=== PATIENT | female | born 1940 | race Caucasian/White ===

== ENCOUNTER 2020-04-01 09:29 | Emergency (ER) | payer OTHER, MEDICAID ==
[~2020-04-01] VITALS: Ht 154.9 cm; Wt 97.2 kg
[~2020-04-01 09:29] MED LIST: ATEN25TA PO; ENAL20TA10 PO; FLUO20CA16 PO; INSU100V11 IJ; INSU100V13 SQ; NITR100C62 PO; PHEN100T82 PO; PRAV20TA2 PO
[2020-04-01 09:52] VITALS: BP 140/98
[2020-04-01] MEDS ORDERED: SULF1TAB24 PO (12:04)
[2020-04-01] MEDS ORDERED: CEPH-264 PO (12:04)
--- NOTE | 2020-04-01 12:05 | PHYS DOC ---
Past Medical History Past Medical History: Diabetes-Type I, GERD, High Cholesterol, Hypertension, VA, Other Additional Past Medical Histor: Diabetic Neuropathy Past Surgical History: Hysterectomy, Tonsillectomy Smoking Status: Former Smoker Alcohol Use: None Drug Use: None General Adult EDM: Chief Complaint: TOE PROBLEM HPI: HPI: Patient is a 79 year old female who presented to ER today for evaluation of right foot pain and swelling for several week. Patient denies any injury, denies any fever. Patient has history of diabetic. Patient says somehow she yet noticed that she missed the nail on the right 4th toe a few day ago. Patient denies any fever, no chest pain, no trouble breathing. Patient denies any pain in the right calf area. Review of Systems: Review of Systems: Constitutional: Denies fever or chills. [] Eyes: Denies change in visual acuity. [] HENT: Denies nasal congestion or sore throat. [] Respiratory: Denies cough or shortness of breath. [] Cardiovascular: Denies chest pain or edema. [] GI: Denies abdominal pain, nausea, vomiting, bloody stools or diarrhea. [] : Denies dysuria. [] Musculoskeletal: Denies back pain , positive for right foot pain and swelling. Integument: Denies rash. [] Neurologic: Denies headache, focal weakness or sensory changes. [] Endocrine: Denies polyuria or polydipsia. [] Lymphatic: Denies swollen glands. [] Psychiatric: Denies depression or anxiety. [] Heart Score: Risk Factors: Risk Factors: DM, Current or recent (<one month) smoker, HTN, HLP, family history of CAD, obesity. Risk Scores: Score 0 - 3: 2.5% MACE over next 6 weeks - Discharge Home Score 4 - 6: 20.3% MACE over next 6 weeks - Admit for Clinical Observation Score 7 - 10: 72.7% MACE over next 6 weeks - Early Invasive Strategies Allergies: Allergies: Allergies Coded Allergies Type Severity Reaction Last Updated Verified No Known Drug Allergies 08/28/13 No Physical Exam: PE: Constitutional: Well developed, well nourished, no acute distress, non-toxic appearance. [] HENT: Normocephalic, atraumatic, bilateral external ears normal, oropharynx moist, no oral exudates, nose normal. [] Eyes: PERRLA, EOMI, conjunctiva normal, no discharge. [] Neck: Normal range of motion, no tenderness, supple, no stridor. [] Cardiovascular:Heart rate regular rhythm, no murmur [] Lungs & Thorax: Bilateral breath sounds clear to auscultation [] Abdomen: Bowel sounds normal, soft, no tenderness, no masses, no pulsatile masses. [] Skin: Warm, dry, no erythema, no rash. [] Back: No tenderness, no CVA tenderness. [] Extremities:right foot is swollen and tender from the mid part to the lateral side, the right 4th toe with missing nail, with erythema, tender to palpation. There is strong dorsalis pedis pulse on right foot. No calf swelling or tender. Neurologic: Alert and oriented X 3, normal motor function, normal sensory function, no focal deficits noted. [] Psychologic: Affect normal, judgement normal, mood normal. [] Current Patient Data: Vital Signs: Vital Signs Date Time Temp Pulse Resp B/P (MAP) Pulse Ox O2 Delivery O2 Flow Rate FiO2 04/01/20 09:52 98.6 100 17 140/98 (112) 96 Room Air 98.6 EKG: EKG: [] Radiology/Procedures: Radiology/Procedures: [facility] [address] [place] [address] IMAGING REPORT Signed PATIENT: SAMANTA WOODY ACCOUNT: [id number] : 1940 LOCATION: ER AGE: 79 SEX: F EXAM STATUS: REG ER ORD. PHYSICIAN: JAVIER WELLER DO REASON: right foot swelling, 4th toe swollen, hx of DM PROCEDURE: FOOT RIGHT 3V FOOT RIGHT 3V History: Reason: right foot swelling, 4th toe swollen, hx of DM / Spl. Instructions: / History: Technique: 3 views right foot. Comparison: None. Findings: Normal alignment. No acute fracture. Mild midfoot degenerative changes. Plantar calcaneal spur. Vascular calcifications. Impression: 1. No acute osseous abnormality. Electronically signed by: Ronnell Robison DO (04/01/2020 12:24 PM) [id number] DICTATED and SIGNED BY: RONNELL ROBISON DO DATE: 04/01/20 1224 Course & Med Decision Making: Course & Med Decision Making Pertinent Labs and Imaging studies reviewed. (See chart for details) Patient is a 79-year-old female who was evaluated in the ER due to right foot pain, on examination the right foot is tender and swollen, there is a missing nail on the fourth toe area, patient had diabetic, x-ray did not show osteomyelitis. Patient will be treated for diabetic foot infection, she will be referred to wound care center at [place] for treatment as an outpatient. Yanci Disclaimer: Yanci Disclaimer: This electronic medical record was generated, in whole or in part, using a voice recognition dictation system. Departure Departure Impression: Primary Impression: Diabetic foot infection Disposition: HOME, SELF-CARE Condition: STABLE Referrals: NO PCP (PCP) LATONYA ISSA DO PLEASE CALL THIS WOUND CARE DOCTOR AT [place] FOR FOLLOW UP ON SATURDAY Patient Instructions: Cellulitis, Diabetes and Foot Care Additional Instructions: Thank you for visiting our Emergency Department. We appreciate you trusting us with your care. If any additional problems come up don't hesitate to return to visit us. Please follow up with your primary care provider so they can plan additional care if needed and know about the problem that you had. If symptoms worsen come back to the Emergency Department. Any concerning symptoms that start such as chest pain, shortness of air, weakness or numbness on one side of the body, running high fevers or any other concerning symptoms return to the ER. Scripts Cephalexin (KEFLEX) 500 Mg Capsule 1 CAP PO TID for 10 Days, #30 CAP 0 Refills Prov: JAVIER WELLER DO 04/01/20 Sulfamethoxazole/Trimethoprim (BACTRIM DS TABLET) 1 Each Tablet 1 TAB PO BID for 10 Days, #20 TAB 0 Refills Prov: JAVIER WELLER DO 04/01/20 Justicifation of Admission Dx: Justifications for Admission: Justification of Admission Dx: N/A JAVIER WELLER DO Apr 01, 2020 12:05
--- NOTE | 2020-04-01 12:27 | RAD ---
FOOT RIGHT 3V History: Reason: right foot swelling, 4th toe swollen, hx of DM / Spl. Instructions: / History: Technique: 3 views right foot. Comparison: None. Findings: Normal alignment. No acute fracture. Mild midfoot degenerative changes. Plantar calcaneal spur. Vascular calcifications. Impression: 1. No acute osseous abnormality. Electronically signed by: Ronnell Robison DO (04/01/2020 12:24 PM) [id number]
== END 2020-04-01 12:25 | disposition home or self-care (01) ==
LOC: ER 09:29
DX: L08.89 Other specified local infections of the skin and subcutaneous tissue (principal); E11.40 Type 2 diabetes mellitus with diabetic neuropathy, unspecified; M79.674 Pain in right toe(s); K21.9 Gastro-esophageal reflux disease without esophagitis; E78.00 Pure hypercholesterolemia, unspecified; I10 Essential (primary) hypertension; I25.2 Old myocardial infarction; Z87.891 Personal history of nicotine dependence; Z90.710 Acquired absence of both cervix and uterus
CPT/HCPCS: 73630; 99283

== ENCOUNTER 2021-03-17 08:50 | Emergency (ER) | payer OTHER, MEDICAID ==
[~2021-03-17] VITALS: Ht 154.9 cm; Wt 91.3 kg
[~2021-03-17 08:50] MED LIST changes: +APIX5TAB PO; +ATEN50TA PO; +CANA100T PO; +CEFD300C PO; +CEPH-264 PO; +CLOP75TA PO; +GABA300C18 PO; +INSU100V6 SQ; +INSU100V8 SQ; +INSU300I SQ; +LINA5TAB PO; +METO25TA4 PO; +OMEP-346 PO; +PRAV80TA2 PO; +SULF1TAB24 PO; +TRAM50TA PO
[2021-03-17 08:56] VITALS: BP 134/75
--- NOTE | 2021-03-17 10:13 | RAD ---
XR LUMBAR SPINE 2-3V History: Lower back pain, radiating to right leg. Comparison: None. Technique: AP, lateral and spot views of the lumbar spine. Findings: There is variant lumbosacral anatomy with 6 nonrib-bearing lumbar vertebral segments. There is no evidence of fracture. Mild dextroconvex curvature. Mild anterolisthesis of L5 on L6. No destructive osseous lesions are seen. Multilevel advanced facet hypertrophic degenerative changes greatest at L5-L6 and L6-S1. Severe disc space narrowing at T12-L1, Sacroiliac joints are unremarkable. Atherosclerotic calcifications aorta and iliac arteries. Calcification of the splenic artery. IMPRESSION: 1. Variant lumbosacral anatomy with 6 nonrib-bearing lumbar vertebral segments. 2. Multilevel lumbar spondylosis. No acute findings. Electronically signed by: Dario Ortega MD (03/17/2021 10:11 AM) [id number]
--- NOTE | 2021-03-17 10:22 | PHYS DOC ---
Past Medical History Past Medical History: Diabetes-Type II Additional Past Medical Histor: Diabetic Neuropathy,PVD Past Surgical History: Hysterectomy Additional Past Surgical Histo: RIGHT LEG STENT Smoking Status: Former Smoker Alcohol Use: None Drug Use: None General Adult EDM: Chief Complaint: LOWER BACK PAIN OR INJURY HPI: HPI: Patient is a 80 year old female who was brought here by EMS from assisted living facility due to low back pain that radiated to right buttock area for the last 2 days. Patient denies any injury. Patient denies any bowel or bladder incontinence. Patient denies any injury. Review of Systems: Review of Systems: Constitutional: Denies fever or chills. [] Eyes: Denies change in visual acuity. [] HENT: Denies nasal congestion or sore throat. [] Respiratory: Denies cough or shortness of breath. [] Cardiovascular: Denies chest pain or edema. [] GI: Denies abdominal pain, nausea, vomiting, bloody stools or diarrhea. [] : Denies dysuria. [] Musculoskeletal: Positive for low back pain, Integument: Denies rash. [] Neurologic: Denies headache, focal weakness or sensory changes. [] Endocrine: Denies polyuria or polydipsia. [] Lymphatic: Denies swollen glands. [] Psychiatric: Denies depression or anxiety. [] Heart Score: C/O Chest Pain: N/A Risk Factors: Risk Factors: DM, Current or recent (<one month) smoker, HTN, HLP, family history of CAD, obesity. Risk Scores: Score 0 - 3: 2.5% MACE over next 6 weeks - Discharge Home Score 4 - 6: 20.3% MACE over next 6 weeks - Admit for Clinical Observation Score 7 - 10: 72.7% MACE over next 6 weeks - Early Invasive Strategies Allergies: Allergies: Allergies Coded Allergies Type Severity Reaction Last Updated Verified No Known Drug Allergies 08/28/13 No Physical Exam: PE: Constitutional: Well developed, well nourished, no acute distress, non-toxic appearance. [] HENT: Normocephalic, atraumatic, bilateral external ears normal, oropharynx moist, no oral exudates, nose normal. [] Eyes: PERRLA, EOMI, conjunctiva normal, no discharge. [] Neck: Normal range of motion, no tenderness, supple, no stridor. [] Cardiovascular:Heart rate regular rhythm, no murmur [] Lungs & Thorax: Bilateral breath sounds clear to auscultation [] Abdomen: Bowel sounds normal, soft, no tenderness, no masses, no pulsatile zuri s. [] Skin: Warm, dry, no erythema, no rash. [] Back: Low back is tender to palpation at L4 and L5 area no CVA tenderness Extremities: No tenderness, no cyanosis, no clubbing, ROM intact, no edema. [] Neurologic: Alert and oriented X 3, normal motor function, normal sensory function, no focal deficits noted. [] Psychologic: Affect normal, judgement normal, mood normal. [] Current Patient Data: Vital Signs: Vital Signs Date Time Temp Pulse Resp B/P (MAP) Pulse Ox O2 Delivery O2 Flow Rate FiO2 03/17/21 08:56 97.7 99 20 134/75 (100) 93 Room Air 97.7 EKG: EKG: [] Radiology/Procedures: Radiology/Procedures: [facility] [address] [place] [address] IMAGING REPORT Signed PATIENT: SAMANTA WOODY ACCOUNT: [id number] : 1940 LOCATION: ER AGE: 80 SEX: F EXAM STATUS: REG ER ORD. PHYSICIAN: JAVIER WELLER DO REASON: lower back pain, radiating to right leg PROCEDURE: LUMBAR SPINE 2-3V XR LUMBAR SPINE 2-3V History: Lower back pain, radiating to right leg. Comparison: None. Technique: AP, lateral and spot views of the lumbar spine. Findings: There is variant lumbosacral anatomy with 6 nonrib-bearing lumbar vertebral segments. There is no evidence of fracture. Mild dextroconvex curvature. Mild anterolisthesis of L5 on L6. No destructive osseous lesions are seen. Multilevel advanced facet hypertrophic degenerative changes greatest at L5-L6 and L6-S1. Severe disc space narrowing at T12-L1, Sacroiliac joints are unremarkable. Atherosclerotic calcifications aorta and iliac arteries. Calcification of the splenic artery. IMPRESSION: 1. Variant lumbosacral anatomy with 6 nonrib-bearing lumbar vertebral segments. 2. Multilevel lumbar spondylosis. No acute findings. Electronically signed by: Dario Castillo MD (03/17/2021 10:11 AM) [id number] DICTATED and SIGNED BY: DARIO CASTILLO MD DATE: 03/17/21 [id number] 0 Course & Med Decision Making: Course & Med Decision Making Pertinent Labs and Imaging studies reviewed. (See chart for details) Patient is an 80-year-old female who present to ER due to low back pain that radiates to right buttock area, symptoms consistent with sciatica. Patient be discharged home with pain medication. No bowel or bladder incontinence. Dragon Disclaimer: Dragon Disclaimer: This electronic medical record was generated, in whole or in part, using a voice recognition dictation system. Departure Departure Impression: Primary Impression: Acute right-sided back pain with sciatica Disposition: HOME / SELF CARE / HOMELESS Condition: STABLE Referrals: BERNARDA VARGAS MD (PCP) Follow up with your doctor as needed on Saturday Patient Instructions: Sciatica Additional Instructions: Thank you for visiting our Emergency Department. We appreciate you trusting us with your care. If any additional problems come up don't hesitate to return to visit us. Please follow up with your primary care provider so they can plan additional care if needed and know about the problem that you had. If symptoms worsen come back to the Emergency Department. Any concerning symptoms that start such as chest pain, shortness of air, weakness or numbness on one side of the body, running high fevers or any other concerning symptoms return to the ER. Scripts Tramadol Hcl (TRAMADOL HCL) 50 Mg Tablet 50 MG PO Q6HRS PRN for PAIN, #20 TAB Prov: JAVIER WELLER DO 03/17/21 JAVIER WELLER DO Mar 17, 2021 10:22
[2021-03-17] MEDS ORDERED: TRAM50TA PO (10:47)
[2021-03-17] MEDS ORDERED: KETOROLAC 60 MG/2 ML VIAL. IM ONE (11:30)
== END 2021-03-17 11:56 | disposition home or self-care (01) ==
LOC: ER 08:50
DX: M54.41 Lumbago with sciatica, right side (principal); E11.40 Type 2 diabetes mellitus with diabetic neuropathy, unspecified; I73.9 Peripheral vascular disease, unspecified; Z90.710 Acquired absence of both cervix and uterus; Z87.891 Personal history of nicotine dependence
CPT/HCPCS: 72100; 96372; 99283; J1885

== ENCOUNTER 2021-10-05 19:47 | Inpatient (IN) | payer OTHER, MEDICAID ==
[~2021-10-05] VITALS: Ht 154.9 cm; Wt 81.4 kg
[~2021-10-05 19:47] MED LIST changes: +CIPR500T94 PO
[2021-10-05 20:19] LABS: BASO # 0.1 x10^3/uL (0.0-0.2); BASO % 1 % (0-3); EOS # 0.1 x10^3/uL (0.0-0.7); EOS % 1 % (0-3); HEMATOCRIT 27.4 % (36.0-47.0); HEMOGLOBIN 8.1 g/dL (12.0-15.5); LYMPH % 13 % (24-48); MEAN CORPUSCULAR HEMOGLOBIN 20 pg (25-35); MEAN CORPUSCULAR HGB CONC 29 g/dL (31-37); MEAN CORPUSCULAR VOLUME 70 fL (79-100); MONO % 14 % (0-9); NEUT # 5.1 x10^3/uL (1.8-7.7); NEUT % 71 % (31-73); PLATELET COUNT 528 x10^3/uL (140-400); RED BLOOD COUNT 3.94 x10^6/uL (3.50-5.40); RED CELL DISTRIBUTION WIDTH 20.3 % (11.5-14.5); WHITE BLOOD COUNT 7.2 x10^3/uL (4.0-11.0)
[2021-10-05 20:27] LABS: CALCIUM 8.5 mg/dL (8.5-10.1); CREATININE 0.9 mg/dL (0.6-1.0); GFR 59.9; POTASSIUM 3.3 mmol/L (3.5-5.1)
[2021-10-05 20:33] LABS: ALBUMIN 2.8 g/dL (3.4-5.0); ALBUMIN/GLOBULIN RATIO 0.8 (1.0-1.7); MAGNESIUM 2.2 mg/dL (1.8-2.4); TOTAL BILIRUBIN 0.3 mg/dL (0.2-1.0); TOTAL PROTEIN 6.5 g/dL (6.4-8.2)
[2021-10-05 20:37] LABS: BILIRUBIN,URINE NEGATIVE (NEG); CLARITY,URINE CLEAR; COLOR,URINE YELLOW; NITRITE,URINE NEGATIVE (NEG); PROTEIN,URINE NEGATIVE (NEG-TRACE)
[2021-10-05 20:38] LABS: BACTERIA,URINE 0 /HPF (0-FEW); HYALINE CASTS, URINE MODERATE /HPF; RBC,URINE >40 /HPF (0-2)
[2021-10-05] MEDS ORDERED: IV NORMAL SALINE 1000ML BAG 1,000 ML IV ONE (20:45)
--- NOTE | 2021-10-05 20:51 | RAD ---
PQRS Compliance Statement: One or more of the following individualized dose reduction techniques were utilized for this examinat ion: 1. Automated exposure control 2. Adjustment of the mA and/or kV according to patient size 3. Use of iterative reconstruction technique CT HEAD WITHOUT CONTRAST History: Reason: confusion, DIFFICULTY HOLDING STILL FOR CT / Spl. Instructions: / History: Comparison: None. Technique: Axial images are obtained of the head from the skull base through the vertex without IV co ntrast. Findings: No mass-effect, midline shift, extra-axial fluid collection, hemorrhage, or obvious acute infarction is identified. Basilar cisterns are patent. The ventricles and sulci are prominent, consistent with generalized cerebral atrophy. There is perive ntricular white matter hypoattenuation. This is a nonspecific finding but is commonly due to chronic small vessel ischemic disease. Bone windows demonstrate no acute calvarial abnormality. The visualized paranasal sinuses are clear. Mastoid air cells are well aerated. IMPRESSION: 1. No acute intracranial abnormality. 2. Generalized cerebral atrophy and periventricular white matter changes probably due to chronic sma ll vessel ischemic disease. Electronically signed by: Carlo Magallanes MD (10/05/2021 8:49 PM) [facility]
[2021-10-05] MEDS ORDERED: IV DEXTROSE 5% 500 ML IV ONE (20:59)
--- NOTE | 2021-10-05 20:59 | RAD ---
Exam: Chest one view INDICATION: Confusion TECHNIQUE: Frontal view of the chest Comparisons: 04/07/2020 FINDINGS: The cardiomediastinal silhouette and pulmonary vessels are within normal limits. Patchy bilateral airspace disease. No pleural effusion IMPRESSION: Findings likely related to pulmonary edema. Superimposed infectious process is difficult to exclude. Electronically signed by: Mary Kate Crain MD (10/05/2021 8:57 PM) BLAIRE
[2021-10-05] MEDS ORDERED: IV DEXTROSE 5%-LACT RINGERS 1,000 ML IV SCH (21:00)
[2021-10-05 21:32] LABS: ANISOCYTOSIS MOD; HYPOCHROMIA MARKED; MICROCYTOSIS MARKED; PLT ESTIMATE INCREASED (ADEQUATE); POLYCHROMASIA SLIGHT
--- NOTE | 2021-10-05 21:33 | ED.ADGEN ---
Past Medical History Past Medical History: Diabetes-Type II Additional Past Medical Histor: Diabetic Neuropathy, PVD Past Surgical History: Hysterectomy, Tonsillectomy Additional Past Surgical Histo: RIGHT LEG STENT Smoking Status: Never Smoker Alcohol Use: None Drug Use: None General Adult EDM: Chief Complaint: HYPOGLYCEMIA HPI: HPI: Patient is an 81-year-old female who presents to the emergency room with altered mental status. Per report, patient was found slid out of her chair with a pillow and blanket. She reportedly is on eliquis. She had a glucose of 38 upon EMS arrival and they gave her D10x2 with improvement in mental status. Patient is le thargic on exam and unable to provide any history. Review of Systems: Review of Systems: Complete ROS is negative unless otherwise documented in HPI Current Medications: Current Medications Medications (Trade) Dose Ordered Sig/Pool Start Time Stop Time Status Last Admin Dose Admin Dextrose 500 ml @ As Directed STK-MED ONCE 10/05/21 20:59 10/05/21 20:59 DC Dextrose/Lactated Ringer's 1,000 ml @ 100 mls/hr Q10H 10/05/21 21:00 10/05/21 21:00 100 MLS/HR Furosemide (Lasix) 40 mg 1X ONCE 10/05/21 22:00 10/05/21 22:01 DC 10/05/21 21:57 40 MG Sodium Chloride 1,000 ml @ 1,000 mls/hr 1X ONCE 10/05/21 20:45 10/05/21 21:44 DC 10/05/21 21:07 1,000 MLS/HR Allergies: Allergies: Allergies Coded Allergies Type Severity Reaction Last Updated Verified No Known Drug Allergies 08/28/13 No Physical Exam: PE: General: lethargic, opens eyes to voice HEENT: Atraumatic, EOMI, PERRL, airway patent, moist oral mucosa Neck: Supple, trachea midline Respiratory: normal effort, diffuse crackles, decreased breath sounds CV: RRR, no murmur, cap refill <2 GI: Soft, nondistended, nontender, no masses MSK: No obvious deformities Skin: Warm, dry, intact Neuro: moves all extremities, no focal deficits, GCS 11 Current Patient Data: Labs: Laboratory Tests Test 10/05/21 19:10 10/05/21 19:50 10/05/21 19:58 10/05/21 20:16 Urine Collection Type U cath Urine Color Yellow Urine Clarity Clear Urine pH 6.0 (<5.0-8.0) Urine Specific [place] 1.020 (1.000-1.030) Urine Protein Negative mg/dL (NEG-TRACE) Urine Glucose (UA) 500 mg/dL (NEG) Urine Ketones (Stick) Negative mg/dL (NEG) Urine Blood Large (NEG) Urine Nitrite Negative (NEG) Urine Bilirubin Negative (NEG) Urine Urobilinogen Dipstick 1.0 mg/dL (0.2 mg/dL) Urine Leukocyte Esterase Negative (NEG) Urine RBC >40 /HPF (0-2) Urine WBC 1-4 /HPF (0-4) Urine Squamous Epithelial Cells Mod /LPF Urine Bacteria 0 /HPF (0-FEW) Urine Hyaline Casts Moderate /HPF Urine Mucus Mod /LPF Glucose (Fingerstick) 159 mg/dL (70-99) H 111 mg/dL (70-99) H QT-Glk-E-Type Natriuretic Peptide 3847 pg/mL (0-449) H White Blood Count 7.2 x10^3/uL (4.0-11.0) Red Blood Count 3.94 x10^6/uL (3.50-5.40) Hemoglobin 8.1 g/dL (12.0-15.5) L Hematocrit 27.4 % (36.0-47.0) L Mean Corpuscular Volume 70 fL (79-100) L Mean Corpuscular Hemoglobin 20 pg (25-35) L Mean Corpuscular Hemoglobin Concent 29 g/dL (31-37) L Red Cell Distribution Width 20.3 % (11.5-14.5) H Platelet Count 528 x10^3/uL (140-400) H Neutrophils (%) (Auto) 71 % (31-73) Lymphocytes (%) (Auto) 13 % (24-48) L Monocytes (%) (Auto) 14 % (0-9) H Eosinophils (%) (Auto) 1 % (0-3) Basophils (%) (Auto) 1 % (0-3) Neutrophils # (Auto) 5.1 x10^3/uL (1.8-7.7) Lymphocytes # (Auto) 1.0 x10^3/uL (1.0-4.8) Monocytes # (Auto) 1.0 x10^3/uL (0.0-1.1) Eosinophils # (Auto) 0.1 x10^3/uL (0.0-0.7) Basophils # (Auto) 0.1 x10^3/uL (0.0-0.2) Platelet Estimate Increased (ADEQUATE) Polychromasia Slight Hypochromasia Marked Anisocytosis Mod Microcytosis Marked Sodium Level 139 mmol/L (136-145) Potassium Level 3.3 mmol/L (3.5-5.1) L Chloride Level 101 mmol/L (98-107) Carbon Dioxide Level 29 mmol/L (21-32) Anion Gap 9 (6-14) Blood Urea Nitrogen 20 mg/dL (7-20) Creatinine 0.9 mg/dL (0.6-1.0) Estimated GFR (Cockcroft-Gault) 59.9 BUN/Creatinine Ratio 22 (6-20) H Glucose Level 142 mg/dL (70-99) H Calcium Level 8.5 mg/dL (8.5-10.1) Magnesium Level 2.2 mg/dL (1.8-2.4) Total Bilirubin 0.3 mg/dL (0.2-1.0) Aspartate Amino Transferase (AST) 24 U/L (15-37) Alanine Aminotransferase (ALT) 16 U/L (14-59) Alkaline Phosphatase 110 U/L (46-116) Troponin I High Sensitivity 640 ng/L (4-50) H Total Protein 6.5 g/dL (6.4-8.2) Albumin 2.8 g/dL (3.4-5.0) L Albumin/Globulin Ratio 0.8 (1.0-1.7) L Test 10/05/21 20:53 10/05/21 21:29 10/05/21 22:14 Glucose (Fingerstick) 68 mg/dL (70-99) L 87 mg/dL (70-99) 82 mg/dL (70-99) Laboratory Tests 10/05/21 19:58 Laboratory Tests 10/05/21 19:58 Vital Signs: Vital Signs Date Time Temp Pulse Resp B/P (MAP) Pulse Ox O2 Delivery O2 Flow Rate FiO2 10/05/21 21:53 96.7 96.7 10/05/21 19:50 84 17 134/72 (92) 99 Nasal Cannula 2.0 EKG: EK Rate 94, irregular rhythm, mild ST depression in V5, V6, no ST elevation Heart Score: C/O Chest Pain: N/A Risk Factors: Risk Factors: DM, Current or recent (<one month) smoker, HTN, HLP, family history of CAD, obesity. Risk Scores: Score 0 - 3: 2.5% MACE over next 6 weeks - Discharge Home Score 4 - 6: 20.3% MACE over next 6 weeks - Admit for Clinical Observation Score 7 - 10: 72.7% MACE over next 6 weeks - Early Invasive Strategies Radiology/Procedures: Radiology/Procedures: [] Course & Med Decision Making: Course & Med Decision Making Pertinent Labs and Imaging studies reviewed. (See chart for details) Patient is a 81-year-old female with a history of diabetes who presents to the Emergency Room with altered mental status. On exam, patient is lethargic though does wake to voice and is moving all extremities. At this time it is unclear what is causing the patient's altered mental status, however they do not appear to be at their baseline. Differential includes infection, electrolyte imbalance, ACS, stroke, intracranial bleed, polypharmacy, dehydration, dementia, renal failure, intracranial bleed. Patient has mild hypothermia. No history was provided to suggest seizure with postictal state. Glucose is normal upon arrival but was low prior to arrival. At arrival, patient is protecting their airway and does not need to be intubated. There are not any signs of trauma, however it is possible that patient fell. To evaluate the patient's altered mental status, CBC, CMP, UA, troponin, EKG, CT head will be ordered. Patient is an elevated troponin. EKG is abnormal, however it does not show a STEMI at this time. She also has signs of pulmonary edema on chest x-ray. It is possible that her elevated troponin is due to congestive heart failure. Patient is requiring D5 at this time to keep glucose up as she has not been awake enough to eat. No further fluids will be given. Patient will be watched for any signs of respiratory distress. She is not hypoxic at this time and is not working to breathe. Patient will need to be admitted for further care and evaluation. CT head is negative. Dragon Disclaimer: Dragon Disclaimer: This electronic medical record was generated, in whole or in part, using a voice recognition dictation system. Departure Departure Impression: Primary Impression: Hypoglycemia Additional Impressions: Elevated troponin Pulmonary edema Disposition: ADMITTED INPATIENT Condition: CRITICAL Referrals: ABI GAYTAN MD (PCP) Problem Qualifiers OBEY CARO MD Oct 05, 2021 21:33
[2021-10-05] MEDS ORDERED: FUROSEMIDE 40 MG/4 ML VIAL. IVP ONE (22:00)
[2021-10-06] MEDS ORDERED: APIX2.5T PO (01:22)
[2021-10-06] MEDS ORDERED: FURO20TA3 PO (01:22)
[2021-10-06] MEDS ORDERED: INSU100I13 SQ ×2 (01:22→09:54)
[2021-10-06] MEDS ORDERED: PANT40TA77 PO (01:22)
[2021-10-06] MEDS ORDERED: FLUO20TA11 PO (01:22)
[2021-10-06] MEDS ORDERED: ACET325T21 PO (01:22)
[2021-10-06 02:19] VITALS: BP 121/90
--- NOTE | 2021-10-06 04:43 | EKG ---
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
[2021-10-06 07:00] VITALS: BP 109/59
[2021-10-06] MEDS ORDERED: ACETAMINOPHEN 325 MG TABLET. PO PRN (09:45)
[2021-10-06] MEDS ORDERED: IV DEXTROSE 5% 250 ML BAG. IV PRN (09:45)
[2021-10-06] MEDS ORDERED: DEXTROSE 50% 25 GM / 50ML DISP.SYRIN. IV PRN (09:45)
--- NOTE | 2021-10-06 09:50 | PDOC ---
Provider Note Date of Service: DATE: 10/06/21 TIME: 09:49 Provider Note Pt seen .H&P dictated.#[id number]. Justifications for Admission Other Justification BERNARDA VARGAS MD Oct 06, 2021 09:49
[2021-10-06] MEDS ORDERED: INSU100I17 SQ (09:54)
[2021-10-06] MEDS ORDERED: POTA-112 PO (09:54)
--- NOTE | 2021-10-06 09:55 | SNU/HH DC ---
DISCHARGE WITH HOME HEALTH DISCHARGE INFORMATION: Discharge Date: Oct 06, 2021 Final Diagnosis: Problems Medical Problems: (1) Elevated troponin Status: Acute (2) Hypoglycemia Status: Acute (3) Pulmonary edema Status: Acute Condition on Discharge: Stable CODE STATUS: Code Status: Full HOME HEALTH: Face to Face: I certify this patient is under my care and that I, or a nurse practitioner or physician's assistant department manager working with me, had a face to face encounter that meets the physician face to face encounter requirements with this patient on []. Medical Complications: DM RN For Eval/Treatment: Yes GROMMET WORKER For: Community Resources Pt Meets Homebound Status: Poor coordination w/ amb. POST DISCHARGE ORDERS: Activity Instructions for Disc: No restrictions Weight Bearing Status after Di: No restrictions DIET AFTER DISCHARGE: ADA Wound/Incision Care: No wound care needed CHECKS AFTER DISCHARGE: Checks after discharge: Check blood sugar, ac/hs TREATMENT/EQUIPMENT ORDERS: Adaptive Equipment Issued: None CERTIFICATION STATEMENT: Certification Statement: Certification Statement: Based on the above finding, I certify that this patient is confined to the home and needs intermittent fci care, physical therapy and/or speech therapy, or continues to need occupational therapy.~ This patient is under my care, and I have initiated the establishment of the plan of care.~ This patient will be followed by myself or a community physician who will periodically review the plan of care. Home Meds Active Scripts Potassium Chloride (Klor-Con 10) 10 Meq Tablet.er, 1 TAB PO DAILY for pot for 30 Days, #30 TAB 0 Refills Prov:BERNARDA VARGAS MD 10/06/21 Insulin Aspart (NOVOLOG FLEXPEN) 100 Unit/1 Ml Insuln.pen, 8 UNIT SQ TID for dm for 30 Days, SYR Prov:BERNARDA VARGAS MD 10/06/21 Insulin Glargine,Hum.rec.anlog (LANTUS SOLOSTAR) 100 Unit/1 Ml Insuln.pen, 20 UNIT SQ QHS for dm, #15 ML 5 Refills Prov:BERNARDA VARGAS MD 10/06/21 Reported Medications Acetaminophen (ACETAMINOPHEN) 325 Mg Tablet, 2 TAB PO PRN Q4HRS PRN for 10/06/21 Pantoprazole Sodium (PROTONIX ) 40 Mg Tablet.dr, 40 MG PO DAILYAC for GERD, TAB 10/06/21 Furosemide (FUROSEMIDE) 20 Mg Tablet, 20 MG PO DAILY for , TAB 10/06/21 Apixaban (ELIQUIS) 2.5 Mg Tablet, 1 TAB PO BID for 10/06/21 Fluoxetine Hcl (FLUOXETINE HCL) 20 Mg Tablet, 30 MG PO DAILY for , TAB 10/06/21 Linagliptin (TRADJENTA) 5 Mg Tablet, 5 MG PO DAILY for TYPE 2 DIABETES, TAB 04/07/20 Pravastatin Sodium (PRAVASTATIN SODIUM) 80 Mg Tablet, 1 TAB PO DAILY for HLD, #30 TAB 5 Refills 04/07/20 Gabapentin (GABAPENTIN ) 300 Mg Capsule, 300 MG PO TID for NEUROGENIC PAIN, CAP 04/07/20 Discontinued Reported Medications Insulin Glargine,Hum.rec.anlog (LANTUS SOLOSTAR) 100 Unit/1 Ml Insuln.pen, 42 UNIT SQ QHS for , #15 ML 3 Refills 10/06/21 BERNARDA VARGAS MD Oct 06, 2021 09:55
[2021-10-06] MEDS ORDERED: LINAGLIPTIN 5 MG TABLET PO SCH (10:30)
[2021-10-06] MEDS ORDERED: POTASSIUM CHLORIDE 20 MEQ TABLET.ER. PO ONE (10:30)
[2021-10-06] MEDS ORDERED: FLUoxetine HCL 10 MG CAPSULE PO SCH (10:30)
[2021-10-06] MEDS ORDERED: FUROSEMIDE 20 MG TABLET PO SCH (10:30)
[2021-10-06] MEDS ORDERED: PANTOPRAZOLE 40 MG TABLET.DR. PO SCH (10:30)
[2021-10-06] MEDS ORDERED: APIXABAN 2.5 MG TABLET. PO SCH (10:30)
--- NOTE | 2021-10-06 10:35 | NUR ---
SS following for discharge planning. SS reviewed pt chart and discussed with pt RN. Pt is resident from [facility], ; fax [phone]. Pt is currently requiring oxygen at two liters nasal canula. Pt has home oxygen. Discharge orders received for home with home healthcare. Pt had services with [facility], ; fax [phone]. Discharge orders and clinical phoned and faxed to [facility] and [facility]. Pt will discharge today and return to facility at 1130 via [facility] transport, [id number]. Pt and pt's RN notified.
--- NOTE | 2021-10-06 10:48 | HP ---
DATE OF SERVICE: 10/06/2021 ADMIT DATE: 10/05/2021 REASON FOR ADMISSION TO THE HOSPITAL: Hypoglycemia, altered mental status. HISTORY OF PRESENT ILLNESS: The patient is an 81-year-old female with history of diabetes, insulin-dependent, has been having blood sugars fluctuating from 40-400 and she had a low blood sugar yesterday. She was slid out of the chair. When the EMS came, blood sugar was 38, was given D50 and the patient was brought to the hospital. She has [facility] last one month 2 times for anemia, congestive heart failure, AFib and had extensive workup done. The patient is on Eliquis for AFib. Hemoglobin is 8, has been stable. PAST MEDICAL HISTORY: Diabetes, hypertension, anxiety, depression, peripheral vascular disease, AFib. PAST SURGICAL HISTORY: Had a stent in the leg, hysterectomy, tonsillectomy. PERSONAL HISTORY: Denies smoking, alcohol, drug abuse. REVIEW OF SYSTEMS: Denies any chest pain, shortness of breath. She adamantly wants to go back to her [place], [place]. ALLERGIES: No known allergies. MEDICATIONS: The patient is on insulin Lantus 42 units daily, Eliquis 2.5 mg twice a day, fluoxetine 20 mg daily, Lasix 20 mg daily, gabapentin 300 mg 3 times a day, Tradjenta 5 mg daily, pantoprazole 40 mg daily, pravastatin 80 mg daily. REVIEW OF SYMPTOMS: Denies any chest pain, shortness of breath. She wants to go back. PHYSICAL EXAMINATION: GENERAL: Elderly female, not in any distress, sitting in chair. VITAL SIGNS: Temperature 99, pulse 106, respirations 18, blood pressure 109/50, 93% on 2 liters. HEENT: Head is atraumatic. Pupils equal. Oral cavity, dentures. NECK: Supple. Thyroid not enlarged. JVD not elevated. CHEST: Symmetrical. CARDIOVASCULAR: S1, S2, regular. LUNGS: Few crackles at the base. ABDOMEN: Soft. No mass palpable. EXTERNAL GENITALIA: No Bates. RECTUM: Deferred. EXTREMITIES: No calf tenderness, no edema. The patient is complaining of small superficial cut from fall. NEUROLOGIC: No focal deficits. Moving all extremities. LABORATORY DATA: Laboratory data shows a white count of 7, hemoglobin 8, platelets 528. Electrolytes show a sodium 139, potassium 3.3, chloride 101, bicarbonate 29, BUN 20, creatinine 0.9, glucose 39 when the paramedics came, now is 142. LFTs normal. Troponin 640. BNP 3000 and urine negative for infection, 40 RBCs, WBCs 1-[address] head negative for abnormality. Chest x-ray shows CHF. FINAL IMPRESSION: 1. Hypoglycemia. 2. Chronic AFib, on Eliquis. 3. Chronic systolic heart failure, on medications, had extensive workup done. 4. Insulin-dependent brittle diabetes. 5. Hypertension. 6. Hyperlipidemia. 7. Anemia of chronic disease,refused work up. PLAN: At this time, the patient is admitted to the hospital. The patient is adamant on going back home. We will cut down the Lantus to half the dose and also give mealtime insulin and see how she improves. Also Cardiology was consulted. As mentioned, had extensive workup done at [facility] in last one month. CRISTHIAN/NAOMI/VICKEY DR: CRISTHIAN/chad TID: [id number] RYAN
--- NOTE | 2021-10-06 11:28 | NUR ---
DISCHARGE TELE DISCONTINUED, PIV ACCIDENTALLY REMOVED BY PT EARLY THIS SHIFT. DISCHARGE PAPERS SENT IN PACKET WITH PATIENT FOR [facility] AND [facility] HAS BEEN FAXED ORDERS WELL. PT DRESSED IN STREET CLOTHES, NOTABLY THERE ARE SEVERAL SMALL SKIN TEARS ON (B)FA FROM PT PICKING TAPE ET IV OUT EARLIER THIS AM. SHE WILL NOT ALLOW DRESSINGS TO THESE AREAS. TRANSFERS WITH [facility] TO W/C FOR TRANSPORT BACK TO FACILITY.
[2021-10-06] MEDS ORDERED: INSULIN LISPRO 300 UNITS/3 ML VIAL. SQ SCH (12:00)
[2021-10-06] MEDS ORDERED: GABAPENTIN 300 MG CAPSULE. PO SCH (14:00)
[2021-10-06] MEDS ORDERED: ATORVASTATIN CALCIUM 20 MG TABLET PO SCH (21:00)
--- NOTE | 2021-10-07 10:51 | PDOC ---
Provider Note Date of Service: DATE: 10/07/21 TIME: 10:50 Provider Note Discharge summary dictated.#[id number]. Justifications for Admission Other Justification BERNARDA VARGAS MD Oct 07, 2021 10:51
--- NOTE | 2021-10-07 11:58 | DS ---
DATE OF DISCHARGE: 10/06/2021 REASON FOR ADMISSION TO THE HOSPITAL: Hypoglycemia insulin-dependent diabetes. CONSULTATIONS: None. PROCEDURES: None. HOSPITAL COURSE: The patient is an 81-year-old female with history of diabetes, on insulin. Lives in assisted facility. She was slumped onto the chair with paramedics came, her blood sugar was 38, was given D50, was admitted to the hospital. CT head was negative. The patient's insulin was on hold. Blood sugars improved and she has chronic conditions including AFib, congestive heart failure, diabetes, hypertension, hyperlipidemia and she had extensive workup at [facility] in last 2 months. The patient's blood sugar remained above 100 and she was discharged. She was cut down from Lantus to half the dose and short-acting insulin with each meal. We will send home with home health. Monitor blood sugars. THEODORA DR: Tam TID: [id number]
== END 2021-10-06 11:25 | disposition home health service (06) | DRG 638 ==
LOC: ER 19:47 → ED HOLD 22:00 → 6 SOUTH 23:59
PROVIDERS: ADMIT Internal Medicine; ATTEND Internal Medicine
DX: E11.649 Type 2 diabetes mellitus with hypoglycemia without coma (principal); J81.1 Chronic pulmonary edema; I50.22 Chronic systolic (congestive) heart failure; I48.20 Chronic atrial fibrillation, unspecified; E11.40 Type 2 diabetes mellitus with diabetic neuropathy, unspecified; E11.51 Type 2 diabetes mellitus with diabetic peripheral angiopathy without gangrene; Z79.01 Long term (current) use of anticoagulants; Z79.4 Long term (current) use of insulin; Z90.710 Acquired absence of both cervix and uterus; F32.A Depression, unspecified; F41.9 Anxiety disorder, unspecified; E78.5 Hyperlipidemia, unspecified; I11.0 Hypertensive heart disease with heart failure; I50.9 Heart failure, unspecified; D63.8 Anemia in other chronic diseases classified elsewhere
CPT/HCPCS: 36415; 70450; 71045; 80053; 81001; 82962; 83735; 83880; 84484; 85025; 93005; 96365; 96375; J1815; J1940; J7030; J7121; 99285-25; G0378

== ENCOUNTER 2021-10-09 14:16 | Inpatient (IN) | payer OTHER, MEDICAID ==
[~2021-10-09] VITALS: Ht 149.9 cm; Wt 84.1 kg
[~2021-10-09 14:16] MED LIST changes: +ACET325T21 PO; +APIX2.5T PO; +FLUO20TA11 PO; +FURO20TA3 PO; +INSU100I13 SQ; +INSU100I17 SQ; +PANT40TA77 PO; +POTA-112 PO
--- NOTE | 2021-10-09 15:25 | PHYS DOC ---
Past Medical History Past Medical History: Dementia, Diabetes-Type II, High Cholesterol, Hyper tension Additional Past Medical Histor: Diabetic Neuropathy, PVD Past Surgical History: Hysterectomy, Tonsillectomy Additional Past Surgical Histo: RIGHT LEG STENT Smoking Status: Never Smoker Alcohol Use: None Drug Use: None General Adult EDM: Chief Complaint: BLURRED/DOUBLE VISION HPI: HPI: Patient is a 81 year old female with a history of diabetes type 2, hypertension, high cholesterol, dementia, PVD, presented to the ED today to be evaluated for generalized weakness and blurry vision, symptoms began 5 days ago. Son states patient was seen in the ED 3 days ago after having hypoglycemia with a syncope episode. Son also state patient is having visual hallucinations. She is seeing things that do not exist. Patient states she needs to go home and take care of her baby. Son states patient's kids are all grown up and there is no baby at home. Patient denies any chest pain, shortness of breath, fever, headache, cough or congestion Review of Systems: Review of Systems: Constitutional: Reports generalized weakness. Denies fever or chills. [] Eyes: Denies change in visual acuity. [] HENT: Denies nasal congestion or sore throat. [] Respiratory: Denies cough or shortness of breath. [] Cardiovascular: Denies chest pain or edema. [] GI: Denies abdominal pain, nausea, vomiting, bloody stools or diarrhea. [] : Denies dysuria. [] Musculoskeletal: Denies back pain or joint pain. [] Integument: Denies rash. [] Neurologic: Reports blurry vision. Denies headache, focal weakness or sensory changes. [] Psychiatric: Denies depression or anxiety. [] Heart Score: C/O Chest Pain: N/A Risk Factors: Risk Factors: DM, Current or recent (<one month) smoker, HTN, HLP, family history of CAD, obesity. Risk Scores: Score 0 - 3: 2.5% MACE over next 6 weeks - Discharge Home Score 4 - 6: 20.3% MACE over next 6 weeks - Admit for Clinical Observation Score 7 - 10: 72.7% MACE over next 6 weeks - Early Invasive Strategies Allergies: Allergies: Allergies Coded Allergies Type Severity Reaction Last Updated Verified No Known Drug Allergies 08/28/13 No Physical Exam: PE: Constitutional: Well developed, well nourished, no acute distress, non-toxic appearance. [] HENT: Normocephalic, atraumatic, bilateral external ears normal, oropharynx moist, no oral exudates, nose normal. [] Eyes: PERRLA, EOMI, conjunctiva normal, no discharge. [] Neck: Normal range of motion, no tenderness, supple, no stridor. [] Cardiovascular:Heart rate regular rhythm Lungs & Thorax: Bilateral breath sounds clear to auscultation [] Abdomen: Bowel sounds normal, soft, no tenderness, no masses, no pulsatile masses. [] Skin: Warm, dry, no erythema, no rash. [] Back: No tenderness, no CVA tenderness. [] Extremities: No tenderness, no cyanosis, no clubbing, ROM intact, no edema. [] Neurologic: Alert and oriented X 3, normal motor function, normal sensory function, no focal deficits noted. Cranial nerves II through XII intact Psychologic: Affect normal, judgement normal, mood normal. [] EKG: EK interpreted by Dr. Santiago sinus rhythm heart rate 99 no STEMI [] Radiology/Procedures: Radiology/Procedures: []PROCEDURE: CT HEAD WO CONTRAST EXAMINATION: CT HEAD/BRAIN WO CLINICAL HISTORY: Weakness for 5 days. TECHNIQUE: Serial axial images without IV contrast were obtained from the vertex to the foramen magnum. CT Dose Reduction Employed: One or more of the following individualized dose reduction techniques were utilized for this examination: 1. Automated exposure control 2. Adjustment of the mA and/or kV according to patient size 3. Use of iterative reconstruction technique. COMPARISON: 10/05/2021 FINDINGS: Acute Change: No evidence of an acute infarct or other acute parenchymal process. Hemorrhage: No evidence of acute intracranial hemorrhage. Mass Lesion/Mass Effect: No evidence of intracranial mass or extraaxial fluid collection. No significant mass effect. Chronic Change: Scattered patchy foci of hypoattenuation in the supratentorial white matter, nonspecific but likely represents mild microvascular ischemia. Atherosclerotic calcification of the intracranial portion of the bilateral internal carotid arteries. Parenchyma: Mild generalized volume loss. Ventricles: Ventricular enlargement concordant with degree of parenchymal volume loss. Paranasal Sinuses and Skull Base: Visualized paranasal sinuses clear. Visualized skull base and soft tissues unremarkable. IMPRESSION: No evidence of acute intracranial abnormality or significant interval change. Electronically signed by: Jose Angela DO (10/09/2021 3:37 PM) [facility] DICTATED and SIGNED BY: JOSE ANGELA DO DATE: 10/09/214 PROCEDURE: PORTABLE CHEST 1V XR CHEST 1V 10/09/2021 3:28 PM INDICATION: Weakness COMPARISON: 10/05/2021 TECHNIQUE: Portable frontal view of the chest is provided. FINDINGS: The cardiomediastinal silhouette is similar in appearance. Coarse peripheral reticular interstitial changes are present with improved aeration as compared to prior examination. There are no significant pleural effusions. There is no pulmonary vascular congestion. No pneumothorax. No suspicious osseous abnormality. IMPRESSION: Peripheral coarse reticular interstitial opacities appear marginally improved as compared to prior examination with improved aeration the lung bases. Findings could reflect improving multifocal pneumonitis with residual scarring or subsegmental atelectasis. Electronically signed by: Andrade Marin MD (10/09/2021 3:31 PM) [id number] DICTATED and SIGNED BY: ANDRADE MARIN MD DATE: 10/09/211529 Course & Med Decision Making: Course & Med Decision Making Pertinent Labs and Imaging studies reviewed. (See chart for details) This 81-year-old female patient presented to the ED today with bilateral vision and generalized weakness, symptoms for 5 days. Patient is also having visual hallucinations. PAT team will be consulted for this. Vitals on arrival to the ED temperature 98.3, heart rate 104, respiration 19, blood pressure 130/57, O2 sats 97% EKG is negative, CT of the head are negative for any acute findings. CBC with a normal WBC, hemoglobin 7.8 with hematocrit of 26.7, history of anem ia, this is around her baseline. CMP with nothing really acute, BNP 4630, furosemide ordered, troponin 89, patient has no chest pain, this is actually lower than her previous troponin levels. UA still pending. Spoke with -he requested we have PAT evaluate patient and transfer her to [facility]. Vivien from PAT evaluated patient, she states patient cannot go to psych until she has a negative PCR COVID test. Patient at some point got herself out of the bed and started to walk leaving the ED stating she is going home. She became agitated. We had to convince her to go back in the room, she continued to be agitated. She was given Ativan 1 mg and she calmed down. Prior to going to the floor, patient was in the bathroom voiding by herself, is my understanding she was found lying on the floor awake alert oriented. She states she was getting her pants up after urinating, she states she slipped and fell. The floor was wet with her urine. Patient denies passing out, denies any neck pain, head pain, mid or low back pain. Ambulates with no difficulties. Dragon Disclaimer: [employer] Disclaimer: This electronic medical record was generated, in whole or in part, using a voice recognition dictation system. Departure Departure Impression: Primary Impression: Generalized weakness Additional Impressions: Visual hallucinations CHF exacerbation Qualified Codes: I50.9 - Heart failure, unspecified Anemia Qualified Codes: D64.9 - Anemia, unspecified Disposition: ADMITTED INPATIENT Condition: STABLE Referrals: ABI GAYTAN MD (PCP) AUNDREA DEGROOT APRN Oct 09, 2021 15:25
[2021-10-09 15:33] LABS: BASO # 0.1 x10^3/uL (0.0-0.2); BASO % 1 % (0-3); EOS # 0.1 x10^3/uL (0.0-0.7); EOS % 1 % (0-3); HEMATOCRIT 26.7 % (36.0-47.0); HEMOGLOBIN 7.8 g/dL (12.0-15.5); LYMPH # 1.6 x10^3/uL (1.0-4.8); LYMPH % 19 % (24-48); MEAN CORPUSCULAR HEMOGLOBIN 20 pg (25-35); MEAN CORPUSCULAR HGB CONC 29 g/dL (31-37); MEAN CORPUSCULAR VOLUME 70 fL (79-100); MONO # 0.8 x10^3/uL (0.0-1.1); MONO % 9 % (0-9); NEUT # 5.7 x10^3/uL (1.8-7.7); NEUT % 70 % (31-73); PLATELET COUNT 446 x10^3/uL (140-400); RED BLOOD COUNT 3.83 x10^6/uL (3.50-5.40); RED CELL DISTRIBUTION WIDTH 20.5 % (11.5-14.5); WHITE BLOOD COUNT 8.2 x10^3/uL (4.0-11.0)
--- NOTE | 2021-10-09 15:33 | RAD ---
XR CHEST 1V 10/09/2021 3:28 PM INDICATION: Weakness COMPARISON: 10/05/2021 TECHNIQUE: Portable frontal view of the chest is provided. FINDINGS: The cardiomediastinal silhouette is similar in appearance. Coarse peripheral reticular interstitial c hanges are present with improved aeration as compared to prior examination. There are no significant pleural effusions. There is no pulmonary vascular congestion. No pneumothora x. No suspicious osseous abnormality. IMPRESSION: Peripheral coarse reticular interstitial opacities appear marginally improved as compared to prior ex amination with improved aeration the lung bases. Findings could reflect improving multifocal pneumoni tis with residual scarring or subsegmental atelectasis. Electronically signed by: Maureen Varela MD (10/09/2021 3:31 PM) [id number]
--- NOTE | 2021-10-09 15:39 | RAD ---
EXAMINATION: CT HEAD/BRAIN WO CLINICAL HISTORY: Weakness for 5 days. TECHNIQUE: Serial axial images without IV contrast were obtained from the vertex to the foramen magnu m. CT Dose Reduction Employed: One or more of the following individualized dose reduction techniques carey e utilized for this examination: 1. Automated exposure control 2. Adjustment of the mA and/or kV ac cording to patient size 3. Use of iterative reconstruction technique. COMPARISON: 10/05/2021 FINDINGS: Acute Change: No evidence of an acute infarct or other acute parenchymal process. Hemorrhage: No evidence of acute intracranial hemorrhage. Mass Lesion/Mass Effect: No evidence of intracranial mass or extraaxial fluid collection. No signific ant mass effect. Chronic Change: Scattered patchy foci of hypoattenuation in the supratentorial white matter, nonspeci fic but likely represents mild microvascular ischemia. Atherosclerotic calcification of the intracran ial portion of the bilateral internal carotid arteries. Parenchyma: Mild generalized volume loss. Ventricles: Ventricular enlargement concordant with degree of parenchymal volume loss. Paranasal Sinuses and Skull Base: Visualized paranasal sinuses clear. Visualized skull base and soft tissues unremarkable. IMPRESSION: No evidence of acute intracranial abnormality or significant interval change. Electronically signed by: Jose Castillo DO (10/09/2021 3:37 PM) [facility]
[2021-10-09 15:51] LABS: PROTHROMBIN TIME PATIENT 16.5 SEC (11.7-14.0)
[2021-10-09 15:57] LABS: CALCIUM 9.2 mg/dL (8.5-10.1); CREATININE 1.1 mg/dL (0.6-1.0); GFR 47.6; POTASSIUM 3.5 mmol/L (3.5-5.1)
[2021-10-09 16:09] LABS: ALBUMIN/GLOBULIN RATIO 0.7 (1.0-1.7); MAGNESIUM 1.8 mg/dL (1.8-2.4); TOTAL BILIRUBIN 0.7 mg/dL (0.2-1.0); TOTAL PROTEIN 7.2 g/dL (6.4-8.2)
[2021-10-09] MEDS ORDERED: FUROSEMIDE 40 MG/4 ML VIAL. IVP ONE (17:45)
[2021-10-09] MEDS ORDERED: MORPHINE SULFATE 2 MG/ML INJ. IVP PRN (18:45)
[2021-10-09] MEDS ORDERED: ONDANSETRON PF 4 MG/2 ML VIAL. IVP PRN (18:45)
[2021-10-09] MEDS ORDERED: ACETAMINOPHEN 325 MG TABLET. PO PRN (18:45)
[2021-10-09 19:31] LABS: ANISOCYTOSIS MOD; HYPOCHROMIA MARKED; MICROCYTOSIS MARKED; PLT ESTIMATE INCREASED (ADEQUATE); POLYCHROMASIA SLIGHT
[2021-10-09 21:50] VITALS: BP 111/60
--- NOTE | 2021-10-09 22:00 | NUR ---
Pt arrived to unit via wheelchair. Refused to participate in admission assessment. Pt had wet pants on and refused to change into dry ones. She repeatedly stated that she would not be staying at the hospital and needed to get home to her 7 year old child. Pt assisted onto bed and laid down closing her eyes. Pt was educate don the use of call light prior to getting out of bed. She stated she did not like our rules. Pt alarm applied at this time. Admission completed to best of ability with information from the emergency department.
[2021-10-09 23:00] VITALS: BP 84/41
[2021-10-10 03:00] VITALS: BP 100/59
[2021-10-10 06:03] LABS: BASO # 0.1 x10^3/uL (0.0-0.2); BASO % 1 % (0-3); EOS # 0.2 x10^3/uL (0.0-0.7); EOS % 2 % (0-3); HEMATOCRIT 26.2 % (36.0-47.0); HEMOGLOBIN 7.6 g/dL (12.0-15.5); LYMPH # 1.9 x10^3/uL (1.0-4.8); LYMPH % 20 % (24-48); MEAN CORPUSCULAR HEMOGLOBIN 20 pg (25-35); MEAN CORPUSCULAR HGB CONC 29 g/dL (31-37); MEAN CORPUSCULAR VOLUME 69 fL (79-100); MONO # 0.9 x10^3/uL (0.0-1.1); MONO % 9 % (0-9); NEUT # 6.2 x10^3/uL (1.8-7.7); NEUT % 68 % (31-73); PLATELET COUNT 411 x10^3/uL (140-400); RED BLOOD COUNT 3.77 x10^6/uL (3.50-5.40); RED CELL DISTRIBUTION WIDTH 20.1 % (11.5-14.5); WHITE BLOOD COUNT 9.2 x10^3/uL (4.0-11.0)
[2021-10-10 06:12] LABS: ALBUMIN 2.6 g/dL (3.4-5.0); ALBUMIN/GLOBULIN RATIO 0.7 (1.0-1.7); CALCIUM 8.5 mg/dL (8.5-10.1); GFR 53.1; TOTAL BILIRUBIN 0.6 mg/dL (0.2-1.0); TOTAL PROTEIN 6.1 g/dL (6.4-8.2)
[2021-10-10 07:00] VITALS: BP 101/53
[2021-10-10] MEDS ORDERED: DEXTROSE 50% 25 GM / 50ML DISP.SYRIN. IV PRN (08:30)
[2021-10-10] MEDS ORDERED: POTASSIUM CHLORIDE 20 MEQ TABLET.ER. PO ONE (08:30)
[2021-10-10] MEDS ORDERED: IV DEXTROSE 5% 250 ML BAG. IV PRN (08:30)
[2021-10-10] MEDS ORDERED: ACETAMINOPHEN 325 MG TABLET. PO PRN (08:30)
[2021-10-10] MEDS: PANTOPRAZOLE 40 MG TABLET.DR. PO SCH (08:52)
[2021-10-10] MEDS: POTASSIUM CHLORIDE 20 MEQ TABLET.ER. PO SCH ×2 (08:52→10:07)
--- NOTE | 2021-10-10 08:52 | NUR ---
1x dose of potassium PO nonadministered by this RN. ICU protocol already in place. Refer to EMAR for additional details.
[2021-10-10] MEDS ORDERED: IRON SUCROSE COMPLEX 200 MG in IV NORMAL SALINE 100ML 100 ML IV ONE (09:00)
--- NOTE | 2021-10-10 09:48 | PDOC ---
Provider Note Date of Service: DATE: 10/10/21 TIME: 09:47 Provider Note Pt seen H&P dictated.#[id number]. Justifications for Admission Other Justification BERNARDA VARGAS MD Oct 10, 2021 09:48
[2021-10-10] MEDS: POTASSIUM CHLORIDE 10 MEQ TABLET.ER. PO SCH (10:06)
[2021-10-10] MEDS: FLUoxetine HCL 10 MG CAPSULE PO SCH (10:06)
[2021-10-10] MEDS: FUROSEMIDE 20 MG TABLET PO SCH (10:07)
[2021-10-10] MEDS: APIXABAN 2.5 MG TABLET. PO SCH ×2 (10:07→20:34)
[2021-10-10] MEDS: GABAPENTIN 300 MG CAPSULE. PO SCH ×3 (10:07→20:34)
[2021-10-10] MEDS: LINAGLIPTIN 5 MG TABLET PO SCH (10:07)
--- NOTE | 2021-10-10 10:25 | HP ---
DATE OF SERVICE: 10/10/2021 ADMIT DATE: 10/09/2021 MEDICAL HISTORY AND PHYSICAL PATIENT LOCATION: 109. REASON FOR ADMISSION TO THE HOSPITAL: Visual hallucinations and patient's family is concerned that she is having dementia with hallucinations once transferred to the psych facility. HISTORY OF PRESENT ILLNESS: The patient is an 81-year-old female. She has diabetes. She was here a week ago with hypoglycemia. This was corrected and the patient's son states that she is confused at times and sees things that does not exist. The patient stated that she needs to go home, take care of her babies. There is no little ones at home. She lives in assisted care facility. The patient denied saying that today. PAST MEDICAL HISTORY: Diabetes, hypertension, hyperlipidemia, CHF, AFib, dementia. PAST SURGICAL HISTORY: Hysterectomy, tonsillectomy, stent in the right leg. The patient had a complete evaluation at [facility] for CHF, AFib. Patient is on Eliquis. She also had anemia, requiring transfusion. PERSONAL HISTORY: Denies smoking, alcohol, drug abuse. ALLERGIES: No known allergies. MEDICATIONS: The patient is on Tylenol, Eliquis 2.5 twice a day, fluoxetine 30 mg daily, Lasix 20 mg daily, gabapentin 300 mg 3 times daily, insulin 8 units 3 times daily, Lantus 20 units at bedtime, Tradjenta 5 mg daily, pantoprazole 40 mg daily, potassium 10 mEq daily, pravastatin 80 mg daily. REVIEW OF SYMPTOMS: The patient denies any chest pain, shortness of breath. Denies any hallucinations. Denies saying anything about baby's. Rest of her systems are negative. PHYSICAL EXAMINATION: GENERAL: The patient is not in any distress. VITAL SIGNS: Temperature 98, pulse 106, respirations 18, blood pressure 101/53, 94 on room air. HEENT: Head is atraumatic. Pupils equal. Oral cavity, no teeth. NECK: Supple. CHEST: Symmetrical. CARDIOVASCULAR: S1, S2. LUNGS: Few crackles at the bases. ABDOMEN: Soft. No mass palpable. EXTERNAL GENITALIA: No Bates. RECTUM: Deferred. EXTREMITIES: 1-2+ edema of lower extremities from CHF. NEUROLOGIC: The patient knows she is in the hospital, remembers me. Moving all extremities. No focal deficits noted. LABORATORY DATA: Shows a white count 8, hemoglobin 7.8, platelets 446. INR 1.4. Electrolytes show sodium 135, potassium 3.5, chloride 99, bicarb 26, BUN 25, creatinine 1.1, glucose 121 and LFTs normal. BNP 4630. COVID screen negative. Chest x-ray, chronic infiltrates. CT head, no acute abnormality. FINAL IMPRESSION: 1. Hallucinations. 2. Dementia. 3. Chronic systolic heart failure. 4. Chronic atrial fibrillation. 5. Anemia of chronic disease. 6. Brittle diabetes. DISPOSITION: She was admitted to the hospital, seen by PAT team and waiting for COVID test, probably we can go for inpatient geriatric care for evaluation. THEODORA DR: Tam TID: [id number]
--- NOTE | 2021-10-10 10:52 | EKG ---
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
--- NOTE | 2021-10-10 10:52 | EKG ---
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
[2021-10-10 11:40] VITALS: BP 119/64
[2021-10-10] MEDS: INSULIN LISPRO 300 UNITS/3 ML VIAL. SQ SCH ×4 (12:00→16:31)
--- NOTE | 2021-10-10 12:00 | NUR ---
Pt's FSBS 467. This RN paged Dr. Payton for insulin orders. Will await call back. Addendum: 10/10/21 at 1227 by CRISTIANA GONZALEZ RN Telephone orders received to give 10 units Humalog x1 and 20 units of Lantus x1 now. Will administer as ordered.
--- NOTE | 2021-10-10 12:25 | PDOC2 ---
DEB LARSEN SHARED SERVICES REPRESENTATIVE 10/10/21 1225: CARDIAC CONSULT DATE OF CONSULT Date of Consult DATE: 10/10/21 TIME: 12:06 REASON FOR CONSULT Reason for Consult: CHF REFERRING PHYSICIAN Referring Physician: Fortunato SOURCE Source: Chart review HISTORY OF PRESENT ILLNESS HISTORY OF PRESENT ILLNESS This is an 81 yo female admitted for complains of weakness and blurred vision. She was also noted with visual hallucination and delusion. Currently she thinks she is a facillity for soldiers. Denies any chest pain or SOA. She is sitting and threatening to go home. PAST MEDICAL HISTORY Past Medical History Cardiovascular: CAD, HTN, VA, Hyperlipidemia Pulmonary: No pertinent hx CENTRAL NERVOUS SYSTEM: Dementia, Periperal neuropathy GI: Constipation Hepatobiliary: No pertinent hx Psych: No pertinent hx Musculoskeletal: Osteoarthritis Rheumatologic: No pertinent hx Infectious disease: No pertinent hx ENT: No pertinent hx Renal/: No pertinent hx, UTI Endocrine: Diabetes Dermatology: Other (right toe ulcer) PAST SURGICAL HISTORY Past Surgical History Tonsillectomy, Hysterectomy FAMILY HISTORY Family History noncontributory SOCIAL HISTORY Smoke: Quit ALCOHOL: none Drugs: None Lives: Long Term (assiated living) CURRENT MEDICATIONS CURRENT MEDICATIONS Current Medications Medications (Trade) Dose Ordered Sig/Pool Route PRN Reason Start Time Stop Time Status Last Admin Dose Admin Furosemide (Lasix) 40 mg 1X ONCE IVP 10/09/21 17:45 10/09/21 17:46 DC 10/09/21 18:16 Lorazepam (Ativan Inj) 1 mg 1X ONCE IVP 10/09/21 20:00 10/09/21 20:01 DC 10/09/21 19:53 Potassium Chloride (Klor-Con) 40 meq Q2H PO 10/10/21 08:00 10/10/21 10:01 DC 10/10/21 10:07 Apixaban (Eliquis) 2.5 mg BID PO 10/10/21 09:00 10/10/21 10:07 Furosemide (Lasix) 20 mg DAILY PO 10/10/21 09:00 10/10/21 10:07 Gabapentin (Neurontin) 300 mg TID PO 10/10/21 09:00 10/10/21 10:07 Linagliptin (Tradjenta) 5 mg DAILY PO 10/10/21 09:00 10/10/21 10:07 Pantoprazole Sodium (Protonix) 40 mg DAILYAC PO 10/10/21 08:10 10/10/21 08:52 Potassium Chloride (Klor-Con) 10 meq DAILY PO 10/10/21 09:00 10/10/21 10:06 Fluoxetine HCl (PROzac) 30 mg DAILY PO 10/10/21 09:00 10/10/21 10:06 Iron Sucrose 200 mg/Sodium Chloride 110 ml @ 55 mls/hr 1X ONCE IV 10/10/21 09:00 10/10/21 10:59 DC 10/10/21 10:07 ALLERGIES ALLERGIES: Coded Allergies: No Known Drug Allergies (Unverified , 08/28/13) ROS Review of System limited, confused PHYSICAL EXAM General: Alert, No acute distress HEENT: Atraumatic, Mucous membr. moist/pink Heart: Other (AFIB RVR, distant heart sounds) Abdomen: Soft Extremities: No cyanosis, Other (1+ bilateral LE pitting edema) Skin: No rashes, Other (generalized ecchymoses to bilateral hands) Neuro: Normal speech Psych/Mental Status: Other (irritable, confused) MUSCULOSKELETAL: Osteoarthritic changes both hands VITALS/I&O VITALS/I&O: Vital Signs Date Time Temp Pulse Resp B/P (MAP) Pulse Ox O2 Delivery O2 Flow Rate FiO2 10/10/21 11:40 98.1 123 18 119/64 (82) 94 Room Air 98.1 LABS Lab: Laboratory Tests Test 10/09/21 15:15 10/09/21 16:04 10/09/21 18:15 10/09/21 18:38 White Blood Count 8.2 x10^3/uL (4.0-11.0) Red Blood Count 3.83 x10^6/uL (3.50-5.40) Hemoglobin 7.8 g/dL (12.0-15.5) L Hematocrit 26.7 % (36.0-47.0) L Mean Corpuscular Volume 70 fL (79-100) L Mean Corpuscular Hemoglobin 20 pg (25-35) L Mean Corpuscular Hemoglobin Concent 29 g/dL (31-37) L Red Cell Distribution Width 20.5 % (11.5-14.5) H Platelet Count 446 x10^3/uL (140-400) H Neutrophils (%) (Auto) 70 % (31-73) Lymphocytes (%) (Auto) 19 % (24-48) L Monocytes (%) (Auto) 9 % (0-9) Eosinophils (%) (Auto) 1 % (0-3) Basophils (%) (Auto) 1 % (0-3) Neutrophils # (Auto) 5.7 x10^3/uL (1.8-7.7) Lymphocytes # (Auto) 1.6 x10^3/uL (1.0-4.8) Monocytes # (Auto) 0.8 x10^3/uL (0.0-1.1) Eosinophils # (Auto) 0.1 x10^3/uL (0.0-0.7) Basophils # (Auto) 0.1 x10^3/uL (0.0-0.2) Platelet Estimate Increased (ADEQUATE) Polychromasia Slight Hypochromasia Marked Basophilic Stippling Present Anisocytosis Mod Microcytosis Marked Macrocytosis Slight Prothrombin Time 16.5 SEC (11.7-14.0) H Prothrombin Time INR 1.4 (0.8-1.1) H Activated Partial Thromboplast Time 30 SEC (24-38) Sodium Level 135 mmol/L (136-145) L Potassium Level 3.5 mmol/L (3.5-5.1) Chloride Level 99 mmol/L (98-107) Carbon Dioxide Level 26 mmol/L (21-32) Anion Gap 10 (6-14) Blood Urea Nitrogen 25 mg/dL (7-20) H Creatinine 1.1 mg/dL (0.6-1.0) H Estimated GFR (Cockcroft-Gault) 47.6 BUN/Creatinine Ratio 23 (6-20) H Glucose Level 121 mg/dL (70-99) H Calcium Level 9.2 mg/dL (8.5-10.1) Magnesium Level 1.8 mg/dL (1.8-2.4) Total Bilirubin 0.7 mg/dL (0.2-1.0) Aspartate Amino Transferase (AST) 33 U/L (15-37) Alanine Aminotransferase (ALT) 20 U/L (14-59) Alkaline Phosphatase 126 U/L (46-116) H Troponin I High Sensitivity 89 ng/L (4-50) H 98 ng/L (4-50) H ZH-Fts-J-Type Natriuretic Peptide 4630 pg/mL (0-449) H Total Protein 7.2 g/dL (6.4-8.2) Albumin 3.0 g/dL (3.4-5.0) L Albumin/Globulin Ratio 0.7 (1.0-1.7) L Glucose (Fingerstick) 106 mg/dL (70-99) H SARS-CoV-2 Antigen (Rapid) Negative (NEGATIVE) Test 10/09/21 20:15 10/10/21 05:30 10/10/21 11:58 Troponin I High Sensitivity 95 ng/L (4-50) H White Blood Count 9.2 x10^3/uL (4.0-11.0) Red Blood Count 3.77 x10^6/uL (3.50-5.40) Hemoglobin 7.6 g/dL (12.0-15.5) L Hematocrit 26.2 % (36.0-47.0) L Mean Corpuscular Volume 69 fL (79-100) L Mean Corpuscular Hemoglobin 20 pg (25-35) L Mean Corpuscular Hemoglobin Concent 29 g/dL (31-37) L Red Cell Distribution Width 20.1 % (11.5-14.5) H Platelet Count 411 x10^3/uL (140-400) H Neutrophils (%) (Auto) 68 % (31-73) Lymphocytes (%) (Auto) 20 % (24-48) L Monocytes (%) (Auto) 9 % (0-9) Eosinophils (%) (Auto) 2 % (0-3) Basophils (%) (Auto) 1 % (0-3) Neutrophils # (Auto) 6.2 x10^3/uL (1.8-7.7) Lymphocytes # (Auto) 1.9 x10^3/uL (1.0-4.8) Monocytes # (Auto) 0.9 x10^3/uL (0.0-1.1) Eosinophils # (Auto) 0.2 x10^3/uL (0.0-0.7) Basophils # (Auto) 0.1 x10^3/uL (0.0-0.2) Sodium Level 139 mmol/L (136-145) Potassium Level 3.0 mmol/L (3.5-5.1) L Chloride Level 103 mmol/L (98-107) Carbon Dioxide Level 29 mmol/L (21-32) Anion Gap 7 (6-14) Blood Urea Nitrogen 20 mg/dL (7-20) Creatinine 1.0 mg/dL (0.6-1.0) Estimated GFR (Cockcroft-Gault) 53.1 BUN/Creatinine Ratio 20 (6-20) Glucose Level 170 mg/dL (70-99) H Calcium Level 8.5 mg/dL (8.5-10.1) Iron Level 12 ug/dL (50-170) L Total Iron Binding Capacity 305 ug/dL (250-450) Iron Saturation 4 % (15-34) L Ferritin 16 ng/mL (8-252) Total Bilirubin 0.6 mg/dL (0.2-1.0) Aspartate Amino Transferase (AST) 13 U/L (15-37) L Alanine Aminotransferase (ALT) 18 U/L (14-59) Alkaline Phosphatase 103 U/L (46-116) Total Protein 6.1 g/dL (6.4-8.2) L Albumin 2.6 g/dL (3.4-5.0) L Albumin/Globulin Ratio 0.7 (1.0-1.7) L Vitamin B12 Level 356 pg/mL (247-911) Glucose (Fingerstick) 467 mg/dL (70-99) H Laboratory Tests 10/09/21 15:15 10/10/21 05:30 Laboratory Tests 10/09/21 15:15 10/10/21 05:30 ASSESSMENT/PLAN ASSESSMENT/PLAN 1. Suspect worsening dementia with associated visual hallucination and delusion 2. Chronic AFIB with RVR 3. Hx of cardiomyopatthy: last known EF at 55% 03/2020 4. Chronic CHF with possible diastolic dysfunction: clinically sompensated 5. DM2 6. Hx of CAD: unclear details 7. Anemia of chronic disease 8. Hypokalemia Recommendations 1. Awaiting eval for SNU/geripscyh 2. Continue eliquis foir stroke prevention. Start on toprol. Dig IV x1. Replace K Continue PO lasix 3. Request cardiac records from [facility] JERMAINE LESLIE MD 10/11/21 8457: CARDIAC CONSULT ASSESSMENT/PLAN ASSESSMENT/PLAN Late entry for 10/10/2021 Patient seen and examined. Agree with above nurse practitioner note. Awaiting records from outside hospital. We will continue rate control. Patient likely not ready for discharge given significant tachycardia at this time. DEB LARSEN APRN Oct 10, 2021 12:25 JERMAINE LESLIE MD Oct 11, 2021 07:57
[2021-10-10] MEDS ORDERED: METOPROLOL SUCC 24HR ER 25 MG TAB.ER.24H. PO ONE (12:30)
[2021-10-10] MEDS ORDERED: INSULIN GLARGINE SYRINGE. SQ ONE (12:30)
[2021-10-10] MEDS ORDERED: INSULIN LISPRO 300 UNITS/3 ML VIAL. SQ ONE (12:30)
[2021-10-10] MEDS ORDERED: DIGOXIN IV 500 MCG/2 ML AMPUL. IV ONE (12:30)
--- NOTE | 2021-10-10 12:59 | NUR ---
Pt continuously removes dry press operator helper, stating "I don't need that." This RN has provided education numerous times on need for monitor. Pt does not accept teaching. Will attempt to place monitor back on at a later time when pt more cooperative.
[2021-10-10] MEDS ORDERED: DIGOXIN 125 MCG TABLET. PO ONE (13:00)
--- NOTE | 2021-10-10 13:28 | NUR ---
Pt attempting to leave unit stating "I'm leaving." Pt unable to be redirected into room, uncooperative. Pt's agitation increased, yelling profanities, calling this RN and MAY Rios derogatory names. Giovanny winters called at approx [phone]. Security and Dionna nursing grain and yeast plants supervisor arrived. Pt uncooperative, would not answer orientation questions, stating "I know where I am, answer your own questions." Pt eventually redirected back into room, sitting at edge of bed. More calm at this time. Will monitor for changes.
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
--- NOTE | 2021-10-10 15:03 | NUR ---
SS following for discharge planning. SS reviewed pt chart and discussed with pt RN. Pt is assisted living resident from [facility], ; fax [phone]. Pt is currently on room air. COVID19 PCR pending. SS notified that pt needs inpatient [facility]. SS contacted pt's sons and discussed and pt's sons agreeable to [facility] with a preference of [facility], ; fax [phone]. SS phoned and faxed referral as requested. SS notified pt's sons that copy of DPOA paperwork is needed for referral. Dr. Payton insisting on PAT team consult. Referral made to PAT team for assessment. Pt's RN notified. SS will continue to follow for discharge planning.
[2021-10-10 19:00] VITALS: BP 101/56
[2021-10-10] MEDS: ATORVASTATIN CALCIUM 20 MG TABLET PO SCH (20:34)
[2021-10-10] MEDS: INSULIN GLARGINE SYRINGE. SQ SCH ×2 (20:35→21:00)
--- NOTE | 2021-10-10 21:20 | NUR ---
Pt Bs is 47 at 2035. Pt has no IV access at this time. Attempts made to place IV unsuccessful. notified. Pt alert at this time and able to drink. Juice provided. At 2109 pts BS is 81.
[2021-10-10 23:00] VITALS: BP 77/44
[2021-10-11 03:00] VITALS: BP 97/48
[2021-10-11 06:12] LABS: BASO # 0.1 x10^3/uL (0.0-0.2); BASO % 1 % (0-3); EOS # 0.1 x10^3/uL (0.0-0.7); EOS % 2 % (0-3); HEMATOCRIT 26.5 % (36.0-47.0); HEMOGLOBIN 7.5 g/dL (12.0-15.5); LYMPH # 1.4 x10^3/uL (1.0-4.8); LYMPH % 18 % (24-48); MEAN CORPUSCULAR HEMOGLOBIN 20 pg (25-35); MEAN CORPUSCULAR HGB CONC 28 g/dL (31-37); MEAN CORPUSCULAR VOLUME 70 fL (79-100); MONO # 0.7 x10^3/uL (0.0-1.1); MONO % 9 % (0-9); NEUT # 5.6 x10^3/uL (1.8-7.7); NEUT % 71 % (31-73); PLATELET COUNT 412 x10^3/uL (140-400); RED BLOOD COUNT 3.79 x10^6/uL (3.50-5.40); RED CELL DISTRIBUTION WIDTH 20.4 % (11.5-14.5)
[2021-10-11 06:43] LABS: CALCIUM 8.8 mg/dL (8.5-10.1); CREATININE 1.3 mg/dL (0.6-1.0); GFR 39.2; POTASSIUM 4.8 mmol/L (3.5-5.1)
[2021-10-11 07:00] VITALS: BP 111/55
[2021-10-11] MEDS: FLUoxetine HCL 10 MG CAPSULE PO SCH (09:00)
[2021-10-11] MEDS: INSULIN LISPRO 300 UNITS/3 ML VIAL. SQ SCH ×6 (09:04→18:10)
[2021-10-11] MEDS: PANTOPRAZOLE 40 MG TABLET.DR. PO SCH (09:06)
[2021-10-11] MEDS: FUROSEMIDE 20 MG TABLET PO SCH (09:06)
[2021-10-11] MEDS: POTASSIUM CHLORIDE 10 MEQ TABLET.ER. PO SCH (09:06)
[2021-10-11] MEDS: LINAGLIPTIN 5 MG TABLET PO SCH (09:07)
[2021-10-11] MEDS: GABAPENTIN 300 MG CAPSULE. PO SCH ×3 (09:07→20:43)
[2021-10-11] MEDS: APIXABAN 2.5 MG TABLET. PO SCH ×2 (09:07→20:43)
--- NOTE | 2021-10-11 09:13 | PDOC ---
PROGRESS NOTES Date of Service: DATE: 10/11/21 TIME: 09:09 Subjective Subjective feels good Objective Objective Vital Signs Date Time Temp Pulse Resp B/P (MAP) Pulse Ox O2 Delivery O2 Flow Rate FiO2 10/11/21 07:00 97.8 86 20 111/55 (73) Room Air 97.8 10/11/21 03:00 96 Intake and Output 10/11/21 07:00 Intake Total 1185 ml Output Total 0 ml Balance 1185 ml Intake Oral 1080 ml IV Total 105 ml Output Urine Total 0 ml # Voids 3 Physical Exam Abdomen: Soft Heart: Other (AFIB RVR, distant heart sounds) Extremities: No cyanosis, Other (1+ bilateral LE pitting edema) General: Alert, No acute distress HEENT: Atraumatic, Mucous membr. moist/pink MUSCULOSKELETAL: Osteoarthritic changes both hands Neuro: Normal speech Psych/Mental Status: Other (irritable, confused) Skin: No rashes, Other (generalized ecchymoses to bilateral hands) Diagnosis Problem List Problems Medical Problems: (1) Anemia Status: Acute (2) CHF exacerbation Status: Acute (3) Generalized weakness Status: Acute (4) Visual hallucinations Status: Acute Assessment Assessment Problems Medical Problems: (1) Anemia Status: Acute (2) CHF exacerbation Status: Acute (3) Generalized weakness Status: Acute (4) Visual hallucinations Status: Acute FINAL IMPRESSION: 1. Hallucinations. 2. Dementia. 3. Chronic systolic heart failure. 4. Chronic atrial fibrillation. 5. Anemia of chronic disease. 6. Brittle diabetes. DISPOSITION: covid test -ve bs 200 range no, on Lantus+novolog BS before any norris from 40 to 400 Low iron studies, got 1 iv iron infusion. d/c to [facility]. hb 7.5,pot 4.8. She was admitted to the hospital, seen by PAT team and waiting for COVID test, probably we can go for inpatient geriatric care for evaluation. Plan Plan of Care Problems Medical Problems: (1) Anemia Status: Acute (2) CHF exacerbation Status: Acute (3) Generalized weakness Status: Acute (4) Visual hallucinations Status: Acute Comment Review of Relevant I have reviewed the following items jarrell (where applicable) has been applied. Labs Laboratory Tests Test 10/10/21 11:58 10/10/21 16:13 10/10/21 20:36 10/10/21 21:10 Glucose (Fingerstick) 467 mg/dL (70-99) 284 mg/dL (70-99) 47 mg/dL (70-99) 81 mg/dL (70-99) Test 10/11/21 02:40 10/11/21 04:35 10/11/21 07:41 Glucose (Fingerstick) 298 mg/dL (70-99) 286 mg/dL (70-99) White Blood Count 8.0 x10^3/uL (4.0-11.0) Red Blood Count 3.79 x10^6/uL (3.50-5.40) Hemoglobin 7.5 g/dL (12.0-15.5) Hematocrit 26.5 % (36.0-47.0) Mean Corpuscular Volume 70 fL (79-100) Mean Corpuscular Hemoglobin 20 pg (25-35) Mean Corpuscular Hemoglobin Concent 28 g/dL (31-37) Red Cell Distribution Width 20.4 % (11.5-14.5) Platelet Count 412 x10^3/uL (140-400) Neutrophils (%) (Auto) 71 % (31-73) Lymphocytes (%) (Auto) 18 % (24-48) Monocytes (%) (Auto) 9 % (0-9) Eosinophils (%) (Auto) 2 % (0-3) Basophils (%) (Auto) 1 % (0-3) Neutrophils # (Auto) 5.6 x10^3/uL (1.8-7.7) Lymphocytes # (Auto) 1.4 x10^3/uL (1.0-4.8) Monocytes # (Auto) 0.7 x10^3/uL (0.0-1.1) Eosinophils # (Auto) 0.1 x10^3/uL (0.0-0.7) Basophils # (Auto) 0.1 x10^3/uL (0.0-0.2) Sodium Level 137 mmol/L (136-145) Potassium Level 4.8 mmol/L (3.5-5.1) Chloride Level 101 mmol/L (98-107) Carbon Dioxide Level 29 mmol/L (21-32) Anion Gap 7 (6-14) Blood Urea Nitrogen 25 mg/dL (7-20) Creatinine 1.3 mg/dL (0.6-1.0) Estimated GFR (Cockcroft-Gault) 39.2 Glucose Level 279 mg/dL (70-99) Calcium Level 8.8 mg/dL (8.5-10.1) Triglycerides Level 83 mg/dL (0-150) Cholesterol Level 133 mg/dL (0-200) LDL Cholesterol, Calculated 72 mg/dL (0-100) VLDL Cholesterol, Calculated 17 mg/dL (0-40) Non-HDL Cholesterol Calculated 89 mg/dL (0-129) HDL Cholesterol 44 mg/dL (40-60) Cholesterol/HDL Ratio 3.0 Thyroid Stimulating Hormone (TSH) 2.005 uIU/mL (0.358-3.74) Medications Current Medications Atorvastatin Calcium (Lipitor) 20 mg QHS PO Last administered on 10/10/21at 20:34; Start 10/10/21 at 21:00 Digoxin (Lanoxin) 250 mcg 1X ONCE IV ; Start 10/10/21 at 12:30; Stop 10/10/21 at 12:31; Status Cancel Digoxin (Lanoxin) 250 mcg 1X ONCE PO Last administered on 10/10/21at 12:51; Start 10/10/21 at 13:00; Stop 10/10/21 at 13:01; Status DC Insulin Glargine (Lantus Syringe) 20 unit 1X ONCE SQ Last administered on 10/10/21at 12:56; Start 10/10/21 at 12:30; Stop 10/10/21 at 12:31; Status DC Insulin Glargine (Lantus Syringe) 20 unit QHS SQ Last administered on 10/10/21at 20:35; Start 10/10/21 at 21:00 Insulin Human Lispro (HumaLOG) 0-7 UNITS TIDWMEALS SQ Last administered on 10/11/21at 09:05; Start 10/10/21 at 12:00 Insulin Human Lispro (HumaLOG) 8 units TIDWMEALS SQ Last administered on 10/11/21at 09:04; Start 10/10/21 at 12:00 Insulin Human Lispro (HumaLOG) 10 units 1X ONCE SQ Last administered on 10/10/21at 12:55; Start 10/10/21 at 12:30; Stop 10/10/21 at 12:31; Status DC Metoprolol Succinate (Toprol Xl) 25 mg 1X ONCE PO Last administered on 10/10/21at 12:51; Start 10/10/21 at 12:30; Stop 10/10/21 at 12:31; Status DC Metoprolol Succinate (Toprol Xl) 25 mg DAILY PO ; Start 10/11/21 at 09:00 Vitals/I & O Vital Sign - Last 24 Hours 10/10/21 10/10/21 10/10/21 10/10/21 11:40 12:51 12:51 19:00 Temp 98.1 98.2 98.1 98.2 Pulse 123 123 123 73 Resp 18 16 B/P (MAP) 119/64 (82) 119/64 119/64 101/56 (71) Pulse Ox 94 97 O2 Delivery Room Air Room Air 10/10/21 10/11/21 10/11/21 23:00 03:00 07:00 Temp 98.3 98.1 97.8 98.3 98.1 97.8 Pulse 71 72 86 Resp 16 16 20 B/P (MAP) 77/44 (55) 97/48 (64) 111/55 (73) Pulse Ox 95 96 O2 Delivery Room Air Room Air Room Air Intake and Output 10/10/21 10/10/21 10/11/21 15:00 23:00 07:00 Intake Total 465 ml 480 ml 240 ml Output Total 0 ml Balance 465 ml 480 ml 240 ml Justifications for Admission Other Justification BERNARDA VARGAS MD Oct 11, 2021 09:13
[2021-10-11] MEDS: METOPROLOL SUCC 24HR ER 25 MG TAB.ER.24H. PO SCH (09:16)
[2021-10-11] MEDS ORDERED: METO-239 PO (09:17)
--- NOTE | 2021-10-11 09:21 | PDOC ---
Provider Note Date of Service: DATE: 10/11/21 TIME: 09:20 Provider Note Discharge summary dictated.#[id number]. Justifications for Admission Other Justification BERNARDA VARGAS MD Oct 11, 2021 09:21
--- NOTE | 2021-10-11 09:22 | SNU/HH DC ---
DISCHARGE ORDERS DISCHARGE INFORMATION: DISCHARGE DATE: Oct 11, 2021 FINAL DIAGNOSIS Problems Medical Problems: (1) Anemia Status: Acute (2) CHF exacerbation Status: Acute (3) Generalized weakness Status: Acute (4) Visual hallucinations Status: Acute CONDITION ON DISCHARGE: Stable CODE STATUS: Code Status: Full HALF-WAY: SNF STAY <30 DAYS: Yes HOSPICE: HOSPICE: No HOSPICE EVAL & TREAT: No POST DISCHARGE ORDERS: ACTIVITY ORDERS: Activity as tolerated WEIGHT BEARING STATUS: As tolerated DIET AFTER DISCHARGE: ADA WOUND/INCISION CARE: Other, see below CHECKS AFTER DISCHARGE: CHECKS AFTER DISCHARGE: Check blood press - daily, Check blood sugar, ac/hs TREATMENT/EQUIPMENT ORDERS: ADAPTIVE EQUIPMENT NEEDED: None Physical Therapy For: Evalulation/Treatment DISCHARGE MEDICATIONS: Home Meds Active Scripts Metoprolol Succinate (METOPROLOL SUCCINATE ( XL )) 25 Mg Tab.er.24h, 25 MG PO DAILY for afib for 30 Days, #30 TAB.SR Prov:BERNARDA VARGAS MD 10/11/21 Potassium Chloride (Klor-Con 10) 10 Meq Tablet.er, 1 TAB PO DAILY for pot for 30 Days, #30 TAB 0 Refills Prov:BERNARDA VARGAS MD 10/06/21 Insulin Aspart (NOVOLOG FLEXPEN) 100 Unit/1 Ml Insuln.pen, 8 UNIT SQ TID for dm for 30 Days, SYR Prov:BERNARDA VARGAS MD 10/06/21 Insulin Glargine,Hum.rec.anlog (LANTUS SOLOSTAR) 100 Unit/1 Ml Insuln.pen, 20 UNIT SQ QHS for dm, #15 ML 5 Refills Prov:BERNARDA VARGAS MD 10/06/21 Reported Medications Acetaminophen (ACETAMINOPHEN) 325 Mg Tablet, 2 TAB PO PRN Q4HRS PRN for 10/06/21 Pantoprazole Sodium (PROTONIX ) 40 Mg Tablet.dr, 40 MG PO DAILYAC for GERD, TAB 10/06/21 Furosemide (FUROSEMIDE) 20 Mg Tablet, 20 MG PO DAILY for , TAB 10/06/21 Apixaban (ELIQUIS) 2.5 Mg Tablet, 1 TAB PO BID for 10/06/21 Fluoxetine Hcl (FLUOXETINE HCL) 20 Mg Tablet, 30 MG PO DAILY for , TAB 10/06/21 Linagliptin (TRADJENTA) 5 Mg Tablet, 5 MG PO DAILY for TYPE 2 DIABETES, TAB 04/07/20 Pravastatin Sodium (PRAVASTATIN SODIUM) 80 Mg Tablet, 1 TAB PO DAILY for HLD, #30 TAB 5 Refills 04/07/20 Gabapentin (GABAPENTIN ) 300 Mg Capsule, 300 MG PO TID for NEUROGENIC PAIN, CAP 04/07/20 Discontinued Reported Medications Insulin Glargine,Hum.rec.anlog (LANTUS SOLOSTAR) 100 Unit/1 Ml Insuln.pen, 42 UNIT SQ QHS for , #15 ML 3 Refills 10/06/21 BERNARDA VARGAS MD Oct 11, 2021 09:22
--- NOTE | 2021-10-11 09:31 | NUR ---
Patient anxious to leave today. Ate breakfast, took most morning medications. States she is waiting for sons to come get her and take her home. Sitting at window watching for them. Pacing room and comes to nurses station. Patient will not allow for brief check or change, states she just wants to take a shower at home. RN could not waiver this decision by patient.
--- NOTE | 2021-10-11 10:21 | NUR ---
Pt walking in [place]. Will not agree to any assessment. Anxious. Will redirect to room, reluctantly. Very ready to get out of here
--- NOTE | 2021-10-11 11:00 | NUR ---
SS following up with discharge planning. SS reviewed pt chart and discussed with pt RN. Pt is currently on room air. COVID19 negative. Ambulatory. SS spoke with Stacy at [facility] and am currently awaiting acceptance decision. DPOA and PCP information received from [facility], ; fax [phone] and sent to Stacy at [place], ; fax [phone]. RN, Kiki, spoke with Stacy at [facility] and provided nursing information. SS will continue to follow for discharge planning. Addendum: 10/11/21 at 1456 by BEAU KUMAR SS DPOA and COVID19 vaccination information received and sent to [facility]. Pt accepted for placement and can admit tomorrow, 10/12/2021. Discharge orders sent to [facility]. Pt will discharge tomorrow and go to [facility] via [facility] transportation, , at 1000. Pt, pt's RN, and pt's family notified. Packet and ambulance form on the chart.
--- NOTE | 2021-10-11 11:29 | DS ---
DATE OF DISCHARGE: 10/12/2021 REASON FOR ADMISSION TO THE HOSPITAL: Hallucinations, confusion. CONSULTATIONS: Cardiology, Dr. Roberts. HOSPITAL COURSE: She is an 81-year-old female has a history of dementia, brittle diabetes, AFib, anemia of chronic disease. She has been mostly at [facility], last admitted had extensive cardiac workup done. She has AFib. She is on Eliquis and she also had some blood transfusion in the past. She was having some hallucinations, confusion and seeing stuff, talking about babies and the family was concerned that dementia getting worse and needs further workup. The patient was brought to the hospital. CT head, no stroke. The patient's COVID test was negative. Hemoglobin low at 7.5 and was given IV iron infusion. The patient had AFib with RVR, seen by Cardiology, started on metoprolol and heart rate was under control. The patient's blood sugars fluctuating from 40-400, brittle and she was started on Lantus and NovoLog at least her blood sugars are in 200 range. Otherwise, thyroid, TSH, lipid was unremarkable. The patient was discharged to [facility] for behavioral evaluation and treatment. FINAL DIAGNOSES: 1. Hallucinations visual with some dementia with behavioral problem. The patient lives in assisted facility and needs further evaluation. 2. 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 3. Chronic atrial fibrillation, rate controlled, on Eliquis. 4. Chronic anemia, iron deficiency. 5. Heart failure, combined systolic and diastolic heart failure. Had extensive workup at [facility]. DISPOSITION: To [facility]. CRISTHIAN/DAVID/VICKEY DR: CRISTHIAN/chad TID: [id number] [facility] SYSTEMWilian
--- NOTE | 2021-10-11 12:10 | PDOC ---
DEB LARSEN [employer]SULTANT 10/11/21 1210: CARDIO Progress Notes Date and Time Date of Service 10/11/2021 Time of Evaluation 1200 Subjective Subjective: No Chest Pain, No shortness of breath, No Palpitations Vitals Vitals Vital Signs Date Time Temp Pulse Resp B/P (MAP) Pulse Ox O2 Delivery O2 Flow Rate FiO2 10/11/21 09:16 86 111/55 10/11/21 08:00 Room Air 10/11/21 07:00 97.8 20 97.8 10/11/21 03:00 96 Weight Weight [ ] Input and Output Intake and Output Intake and Output 10/11/21 07:00 Intake Total 1185 ml Output Total 0 ml Balance 1185 ml Intake Oral 1080 ml IV Total 105 ml Output Urine Total 0 ml # Voids 3 Laboratory Labs Laboratory Tests Test 10/10/21 16:13 10/10/21 20:36 10/10/21 21:10 10/11/21 02:40 Glucose (Fingerstick) 284 mg/dL (70-99) 47 mg/dL (70-99) 81 mg/dL (70-99) 298 mg/dL (70-99) Test 10/11/21 04:35 10/11/21 07:41 White Blood Count 8.0 x10^3/uL (4.0-11.0) Red Blood Count 3.79 x10^6/uL (3.50-5.40) Hemoglobin 7.5 g/dL (12.0-15.5) Hematocrit 26.5 % (36.0-47.0) Mean Corpuscular Volume 70 fL (79-100) Mean Corpuscular Hemoglobin 20 pg (25-35) Mean Corpuscular Hemoglobin Concent 28 g/dL (31-37) Red Cell Distribution Width 20.4 % (11.5-14.5) Platelet Count 412 x10^3/uL (140-400) Neutrophils (%) (Auto) 71 % (31-73) Lymphocytes (%) (Auto) 18 % (24-48) Monocytes (%) (Auto) 9 % (0-9) Eosinophils (%) (Auto) 2 % (0-3) Basophils (%) (Auto) 1 % (0-3) Neutrophils # (Auto) 5.6 x10^3/uL (1.8-7.7) Lymphocytes # (Auto) 1.4 x10^3/uL (1.0-4.8) Monocytes # (Auto) 0.7 x10^3/uL (0.0-1.1) Eosinophils # (Auto) 0.1 x10^3/uL (0.0-0.7) Basophils # (Auto) 0.1 x10^3/uL (0.0-0.2) Sodium Level 137 mmol/L (136-145) Potassium Level 4.8 mmol/L (3.5-5.1) Chloride Level 101 mmol/L (98-107) Carbon Dioxide Level 29 mmol/L (21-32) Anion Gap 7 (6-14) Blood Urea Nitrogen 25 mg/dL (7-20) Creatinine 1.3 mg/dL (0.6-1.0) Estimated GFR (Cockcroft-Gault) 39.2 Glucose Level 279 mg/dL (70-99) Calcium Level 8.8 mg/dL (8.5-10.1) Triglycerides Level 83 mg/dL (0-150) Cholesterol Level 133 mg/dL (0-200) LDL Cholesterol, Calculated 72 mg/dL (0-100) VLDL Cholesterol, Calculated 17 mg/dL (0-40) Non-HDL Cholesterol Calculated 89 mg/dL (0-129) HDL Cholesterol 44 mg/dL (40-60) Cholesterol/HDL Ratio 3.0 Thyroid Stimulating Hormone (TSH) 2.005 uIU/mL (0.358-3.74) Glucose (Fingerstick) 286 mg/dL (70-99) Physical Exam HEENT: Neck Supple W Full Motion Chest: Symmetric LUNGS: Clear to Auscultation Heart: S1S2, irregularly irregular (not on tele) Abdomen: Soft N/T Extremities: No Edema, No Calf Tenderness Neurology: alert, follow commands, confused Assessment Assessment 1. Suspect worsening dementia with associated visual hallucination and delusion 2. Chronic AFIB with RVR: rate controlled. has refused tele monitor 3. Hx of cardiomyopatthy: last known EF at 55% 03/2020 4. Chronic CHF with possible diastolic dysfunction: clinically sompensated 5. DM2 6. Hx of CAD: unclear details 7. Anemia of chronic disease 8. Hypokalemia: resolved Recommendations 1. Awaiting eval for SNU/geripscyh 2. Continue eliquis for stroke prevention. Toprol XL. Replace K Continue PO lasix 3. Request cardiac records from [facility] [employer]. Follow up with cardiology 4. Secondary prevention measures Justicifation of Admission Dx: Justifications for Admission: Justification of Admission Dx: Yes Cellulitis: Cellulitis JERMAINE LESLIE MD 10/11/21 2153: CARDIO Progress Notes Plan Plan Patient seen and examined. Agree with above nurse practitioner note. Patient appears to have significant psychosocial issues. She also has significant anemia. Continue close monitoring and may ultimately need referral for left atrial a ppendage closure device but this can be discussed based on goals of care meeting with the family on an outpatient basis. DEB LARSEN APRN Oct 11, 2021 12:10 JERMAINE LESLIE MD Oct 11, 2021 21:53
[2021-10-11 18:00] VITALS: BP 106/60
--- NOTE | 2021-10-11 18:12 | NUR ---
Patient agreed to VS at 1800. BG was 128. Patient is not eating dinner. Concern for hypoglycemia after overnight occurrence. Humalog not given. Will report to night RN. Patient sitting in chair at window "waiting for my kids to come and get me" States she is not going to [place] tomorrow. Very irritated when it is mentioned. Patient redirected back into room as she tries to leave " I will walk home" Patient within view of RN.
[2021-10-11 19:00] VITALS: BP 104/58
[2021-10-11] MEDS: ATORVASTATIN CALCIUM 20 MG TABLET PO SCH (20:43)
[2021-10-11 23:00] VITALS: BP 106/62
[2021-10-12 00:08] LABS: HEMOGLOBIN A1C 9.8 % (4.8-5.6)
[2021-10-12 03:00] VITALS: BP 96/47
[2021-10-12 07:00] VITALS: BP 96/70
[2021-10-12] MEDS: PANTOPRAZOLE 40 MG TABLET.DR. PO SCH (08:28)
[2021-10-12] MEDS: FLUoxetine HCL 10 MG CAPSULE PO SCH (08:48)
[2021-10-12] MEDS: LINAGLIPTIN 5 MG TABLET PO SCH (08:48)
[2021-10-12] MEDS: FUROSEMIDE 20 MG TABLET PO SCH (08:48)
[2021-10-12] MEDS: GABAPENTIN 300 MG CAPSULE. PO SCH (08:49)
[2021-10-12] MEDS: POTASSIUM CHLORIDE 10 MEQ TABLET.ER. PO SCH (08:49)
[2021-10-12] MEDS: APIXABAN 2.5 MG TABLET. PO SCH (08:49)
[2021-10-12 08:50] VITALS: BP 96/70
[2021-10-12] MEDS: METOPROLOL SUCC 24HR ER 25 MG TAB.ER.24H. PO SCH (08:50)
[2021-10-12] MEDS: INSULIN LISPRO 300 UNITS/3 ML VIAL. SQ SCH ×2 (08:53→08:55)
--- NOTE | 2021-10-12 09:12 | PDOC ---
PROGRESS NOTES Date of Service: DATE: 10/12/21 TIME: 09:09 Subjective Subjective feeling good,bs stable Objective Objective Vital Signs Date Time Temp Pulse Resp B/P (MAP) Pulse Ox O2 Delivery O2 Flow Rate FiO2 10/12/21 08:50 74 96/70 10/12/21 07:00 98.3 20 Room Air 98.3 Intake and Output 10/12/21 07:00 Intake Total 500 ml Balance 500 ml Intake Oral 500 ml # Voids 4 Physical Exam Abdomen: Soft Heart: Other (AFIB RVR, distant heart sounds) Extremities: No cyanosis, Other (1+ bilateral LE pitting edema) General: Alert, No acute distress HEENT: Atraumatic, Mucous membr. moist/pink MUSCULOSKELETAL: No swelling, Osteoarthritic changes both hands Neuro: Normal speech Psych/Mental Status: Other (irritable, confused) Skin: No rashes, Other (generalized ecchymoses to bilateral hands) Diagnosis Problem List Problems Medical Problems: (1) Anemia Status: Acute (2) CHF exacerbation Status: Acute (3) Generalized weakness Status: Acute (4) Visual hallucinations Status: Acute Assessment Assessment Problems Medical Problems: (1) Anemia Status: Acute (2) CHF exacerbation Status: Acute (3) Generalized weakness Status: Acute (4) Visual hallucinations Status: Acute FINAL IMPRESSION: 1. Hallucinations. 2. Dementia. 3. Chronic systolic heart failure. 4. Chronic atrial fibrillation. 5. Anemia of chronic disease. 6. Brittle diabetes. DISPOSITION:d/c to [facility] unit. reviewed records from [facility] cath 2020-single vessel RCA blockage with good collaterals,55% ejf covid test -ve bs 200 range no, on Lantus+novolog BS before any norris from 40 to 400 Low iron studies, got 1 iv iron infusion. d/c to [facility]. hb 7.5,pot 4.8. Plan Plan of Care Problems Medical Problems: (1) Anemia Status: Acute (2) CHF exacerbation Status: Acute (3) Generalized weakness Status: Acute (4) Visual hallucinations Status: Acute Comment Review of Relevant I have reviewed the following items jarrell (where applicable) has been applied. Labs Laboratory Tests Test 10/11/21 15:00 10/11/21 17:57 10/11/21 19:34 10/12/21 08:15 Glucose (Fingerstick) 82 mg/dL (70-99) 128 mg/dL (70-99) 214 mg/dL (70-99) 239 mg/dL (70-99) Vitals/I & O Vital Sign - Last 24 Hours 10/11/21 10/11/21 10/11/21 10/11/21 09:16 18:00 19:00 20:00 Temp 97.9 98.1 97.9 98.1 Pulse 86 91 91 Resp 20 20 B/P (MAP) 111/55 106/60 (75) 104/58 (73) O2 Delivery Room Air Room Air Room Air 10/11/21 10/12/21 10/12/21 10/12/21 23:00 03:00 07:00 08:50 Temp 98.1 98.4 98.3 98.1 98.4 98.3 Pulse 90 82 74 74 Resp 20 18 20 B/P (MAP) 106/62 (77) 96/47 (63) 96/70 (79) 96/70 O2 Delivery Room Air Room Air Room Air Intake and Output 10/11/21 10/11/21 10/12/21 15:00 23:00 07:00 Intake Total 300 ml 200 ml Balance 300 ml 200 ml Justifications for Admission Other Justification BERNARDA VARGAS MD Oct 12, 2021 09:12
--- NOTE | 2021-10-12 10:16 | NUR ---
Patient oriented to person this am. Would not allow physical assessment. Patient believed to be incontinent, of bowel/bladder and refused check/ change of brief. Patient did eat breakfast, drink cup of coffee and take all morning medications. Patient talked of waiting for son to come and get her and another time of a son having surgery in this hospital and she is waiting to see him. [facility] arrived to transport patient to other facility. Pt refused. Son, Jayme spoke on speaker phone with patient while security, social media community manager, and staff were attempting to have patient move from chair to [facility]z[place]le. Patient agreed to move herself to [facility] and go with [facility]. Report called to [facility], spoke with Veronique.
--- NOTE | 2021-10-17 13:47 | EKG ---
[facility] [address] [place] [address] Test Date: 2021-10-14 Test Time: 20:05:27 Pat Name: SAMANTA WOODY Department: Room: 109 1 Gender: F Category Director: : [id number] Requested By: BERNARDA VARGAS Order Number: [id number] Reading MD: Measurements Intervals [place] Rate: 90 P: [place]: QRS: 88 QRSD: 98 T: -173 QT: 400 QTc: 494 Interpretive Statements IRREGULAR RHYTHM, NO P-WAVE FOUND LOW LIMB LEAD VOLTAGE ST & T ABNORMALITY, CONSIDER HIGH LATERAL ISCHEMIA OR LEFT VENTRICULAR STRAIN T ABNORMALITY IN ANTERIOR LEADS INFEROLATERAL LEADS ABNORMAL ECG RI6.01 No previous ECG available for comparison
== END 2021-10-12 10:00 | DRG 683 ==
LOC: ER 14:16 → ED HOLD 18:30 → 1 WEST ICU 22:01
PROVIDERS: ADMIT Internal Medicine; ATTEND Internal Medicine
DX: N17.0 Acute kidney failure with tubular necrosis (principal); I48.20 Chronic atrial fibrillation, unspecified; F03.91 Unspecified dementia, unspecified severity, with behavioral disturbance; I50.42 Chronic combined systolic (congestive) and diastolic (congestive) heart failure; I11.0 Hypertensive heart disease with heart failure; D50.9 Iron deficiency anemia, unspecified; D63.8 Anemia in other chronic diseases classified elsewhere; E11.40 Type 2 diabetes mellitus with diabetic neuropathy, unspecified; E11.51 Type 2 diabetes mellitus with diabetic peripheral angiopathy without gangrene; E11.649 Type 2 diabetes mellitus with hypoglycemia without coma; E78.00 Pure hypercholesterolemia, unspecified; E78.5 Hyperlipidemia, unspecified; E87.6 Hypokalemia; I25.10 Atherosclerotic heart disease of native coronary artery without angina pectoris; Z20.822 Contact with and (suspected) exposure to COVID-19; Z79.01 Long term (current) use of anticoagulants; Z90.710 Acquired absence of both cervix and uterus; M19.90 Unspecified osteoarthritis, unspecified site; Z90.49 Acquired absence of other specified parts of digestive tract
CPT/HCPCS: 36415; 70450; 71045; 80048; 80053; 80061; 82607; 82728; 82962; 83036; 83540; 83550; 83735; 83880; 84425; 84443; 84484; 85025; 85610; 85730; 87426; 93005; 96374; 96375; J1756; J1815; J1940; J2060; U0003; 99285-25; G0378